=== PATIENT | female | born 1955 | race American Indian/Alaskan Native ===

== ENCOUNTER 2016-11-29 09:56 | Emergency (ER) | payer OTHER, MEDICARE ==
[2016-11-29 10:51] LABS: Eosinophils % (Auto) 1.8 % (0.0-4.3); Hematocrit 34.5 % (30.3-42.9); Hemoglobin 11.7 gm/dl (10.1-14.3); Mean Corpuscular HGB Conc 34 % (30-34); Mean Corpuscular Hemoglobin 30 pg (28-32); Mean Corpuscular Volume 89 fl (79-97); Platelet Count 324 K/mm3 (140-440); Red Blood Count 3.88 M/mm3 (3.65-5.03); Red Cell Distribution Width 14.4 % (13.2-15.2)
[2016-11-29 11:11] LABS: Albumin 3.2 g/dL (3.9-5); Albumin/Globulin Ratio 0.7 %; BUN/Creatinine Ratio 8.04; Bilirubin,Total 0.3 mg/dL (0.1-1.2); Calcium 8.6 mg/dL (8.4-10.2); Potassium 3.6 mmol/L (3.6-5.0); Total Protein 7.6 g/dL (6.3-8.2)
[2016-11-29 11:25] LABS: Bacteria,Urine 1+ /HPF (Negative); Bilirubin,Urine NEG (Negative); Blood,Urine NEG (Negative); Ketones,Urine NEG (Negative); Leukocyte Esterase,Urine TR (Negative); Nitrite,Urine NEG (Negative); Urobilinogen,Urine < 2.0 mg/dL (<2.0)
[2016-11-29] MEDS ORDERED: ZOFRAN ODT PO ONE (14:35)
[2016-11-29] MEDS ORDERED: NORCO 5/325 PO ONE (14:35)
[2016-11-29] MEDS ORDERED: NACL ONE (14:46)
[2016-11-29] MEDS ORDERED: CATAPRES PO ONE (14:48)
--- NOTE | 2016-11-29 15:32 | Emergency Department Report ---
ED Back Pain/Injury HPI - General Chief Complaint: Back Pain/Injury Stated Complaint: BACK PAIN Time Seen by Provider: 11/29/16 14:25 Source: patient Limitations: No Limitations - History of Present Illness Initial Comments: 61 yo female the past medical history of diabetes, hypertension, previous appendectomy/cholecystectomy, and peritoneal dialysis presents to the hospital complains of right lower back pain 4 days. Patient denies any injury. Pain is constant, sharp, worse with palpation and movement. Rated 8/10 in intensity. Pain occasionally radiates to right thigh. Denies numbness, weakness, or urinary incontinence. Only temporary improvement with Aleve. Patient also states she has not had a bowel movement in 3 days despite taking her typical daily laxity of. Patient does make urine denies dysuria. Patient does not have on her blood pressure medications prior to arrival. Inpatient feels like she is full with meals but denies nausea or vomiting. She states that her dialysate fluid is clear. - Related Data Home Medications Medication Instructions Recorded Confirmed Last Taken Aspirin [Aspirin TAB] 325 mg PO ONCE 02/15/15 02/15/15 Unknown Furosemide [Lasix TAB] 90 mg PO BID 02/15/15 02/15/15 Unknown Levothyroxine [Synthroid] 137 mcg PO QAM 02/15/15 02/15/15 Unknown Lisinopril [Zestril TAB] 0 mg PO DAILY 02/15/15 02/15/15 Unknown Metoprolol [Lopressor TAB] 0 mg PO BID 02/15/15 02/15/15 Unknown Previous Rx's Medication Instructions Recorded Last Taken Type HYDROcodone/APAP 5-325 [[place] 1 each PO Q6HR PRN #20 tablet 11/29/16 Unknown Rx 5/325] Allergies Allergy/AdvReac Type Severity Reaction Status Date / Time blueberry Allergy Rash Verified 11/29/16 10:25 chocolate flavor Allergy Rash Verified 11/29/16 10:25 Fish Containing Products Allergy Anaphylaxis Verified 11/29/16 10:25 peanut Allergy Anaphylaxis Verified 11/29/16 10:25 shellfish derived Allergy Anaphylaxis Verified 11/29/16 10:25 strawberry Allergy Rash Verified 11/29/16 10:25 acetaminophen AdvReac Unknown Verified 11/29/16 10:23 codeine AdvReac Unknown Verified 11/29/16 10:23 iodine AdvReac Unknown Verified 11/29/16 10:23 lactase AdvReac Diarrhea Verified 11/29/16 10:25 Penicillins AdvReac Unknown Verified 11/29/16 10:23 Sulfa (Sulfonamide AdvReac Unknown Verified 11/29/16 10:23 Antibiotics) ED Review of Systems ROS: Stated complaint: BACK PAIN Other details as noted in HPI Comment: All other systems reviewed and negative Other: Constitutional: No fevers chills Eyes: No eye pain visual changes ENT: No ear pain or throat pain Neck: Denies pain Respiratory: Denies cough wheezing shortness of breath Cardiovascular: Denies chest pain, palpitations, syncope GI: As per HPI : Denies dysuria Musculoskeletal: As per HPI Skin: Denies rash, lesions, erythema Neurologic: Denies headache, numbness, weakness Psychiatric: Denies suicidal ideation, hallucinations ED Past Medical Hx - Past Medical History Hx Hypertension: Yes Hx Diabetes: Yes Hx Renal Disease: Yes (PERITONEAL DAILY) Additional medical history: THYROID - Surgical History Hx Cholecystectomy: Yes Hx Appendectomy: Yes Additional Surgical History: THYROIDECTOMY. DIALYSIS CATHETER - Social History Smoking Status: Never Smoker Substance Use Type: Prescribed - Medications Home Medications: Home Medications Medication Instructions Recorded Confirmed Last Taken Type Aspirin [Aspirin TAB] 325 mg PO ONCE 02/15/15 02/15/15 Unknown History Furosemide [Lasix TAB] 90 mg PO BID 02/15/15 02/15/15 Unknown History Levothyroxine [Synthroid] 137 mcg PO QAM 02/15/15 02/15/15 Unknown History Lisinopril [Zestril TAB] 0 mg PO DAILY 02/15/15 02/15/15 Unknown History Metoprolol [Lopressor TAB] 0 mg PO BID 02/15/15 02/15/15 Unknown History HYDROcodone/APAP 5-325 [[place] 1 each PO Q6HR PRN #20 tablet 11/29/16 Unknown Rx 5/325] ED Physical Exam - General Limitations: No Limitations - Other Other exam information: General: No limitations, patient is alert in no acute distress Head exam: Atraumatic, normocephalic Eyes exam: Normal appearance ENT: Moist mucous membrane, normal oropharynx Neck exam: Normal inspection, full range of motion Respiratory exam: Clear to auscultation bilateral, no wheezes, rales, crackles Cardiovascular: Normal rate and rhythm, normal heart sounds Abdomen: Soft, nondistended, and nontender, with normal bowel sounds, no rebound, or guarding. Right upper quadrant scar Extremity: Full range of motion normal inspection no deformity Back: Normal Inspection, full range of motion, right lower back tenderness to palpation. No midline tenderness. No deformity. Neurologic: Alert, oriented x3, cranial nerves intact, no motor or sensory deficit Psychiatric: normal affect, normal mood Skin: Warm, dry, intact ED Course Vital Signs 11/29/16 11/29/16 11/29/16 10:32 15:16 15:21 Temperature 98.1 F Pulse Rate 87 Respiratory 18 Rate Blood Pressure 182/108 174/96 Blood Pressure [Right] O2 Sat by Pulse 100 99 96 Oximetry 11/29/16 11/29/16 11/29/16 15:40 15:52 16:45 Temperature Pulse Rate 63 63 Respiratory 18 18 18 Rate Blood Pressure 174/96 Blood Pressure 174/96 175/99 [Right] O2 Sat by Pulse 99 94 Oximetry ED Medical Decision Making - Lab Data Result diagrams: 11/29/16 10:40 11/29/16 10:40 Lab Results 11/29/16 11/29/16 11/29/16 Range/Units 10:29 10:40 10:40 WBC 7.0 (4.5-11.0) K/mm3 RBC 3.88 (3.65-5.03) M/mm3 Hgb 11.7 (10.1-14.3) gm/dl Hct 34.5 (30.3-42.9) % MCV 89 (79-97) fl MCH 30 (28-32) pg MCHC 34 (30-34) % RDW 14.4 (13.2-15.2) % Plt Count 324 (140-440) K/mm3 Lymph % (Auto) 24.9 (13.4-35.0) % [place] % (Auto) 6.8 (0.0-7.3) % Eos % (Auto) 1.8 (0.0-4.3) % Baso % (Auto) 1.0 (0.0-1.8) % Lymph # 1.8 (1.2-5.4) K/mm3 [place] # 0.5 (0.0-0.8) K/mm3 Eos # 0.1 (0.0-0.4) K/mm3 Baso # 0.1 (0.0-0.1) K/mm3 Seg Neutrophils % 65.5 (40.0-70.0) % Seg Neutrophils # 4.6 (1.8-7.7) K/mm3 Sodium 133 L (137-145) mmol/L Potassium 3.6 (3.6-5.0) mmol/L Chloride 92.0 L (98-107) mmol/L Carbon Dioxide 25 (22-30) mmol/L Anion Gap 20 mmol/L BUN 33 H (7-17) mg/dL Creatinine 4.1 H (0.7-1.2) mg/dL Estimated GFR 13 ml/min BUN/Creatinine Ratio 8.04 % Glucose 344 H (65-100) mg/dL POC Glucose 346 H (70-105) Calcium 8.6 (8.4-10.2) mg/dL Total Bilirubin 0.30 (0.1-1.2) mg/dL AST 21 (5-40) units/L ALT 15 (7-56) units/L Alkaline Phosphatase 90 (35-129) units/L Total Protein 7.6 (6.3-8.2) g/dL Albumin 3.2 L (3.9-5) g/dL Albumin/Globulin Ratio 0.7 % Lipase 61 H (13-60) units/L Urine Color (Yellow) Urine Turbidity (Clear) Urine pH (5.0-7.0) Ur Specific [place] (1.003-1.030) Urine Protein (Negative) mg/dL Urine Glucose (UA) (Negative) mg/dL Urine Ketones (Negative) mg/dL Urine Blood (Negative) Urine Nitrite (Negative) Urine Bilirubin (Negative) Urine Urobilinogen (<2.0) mg/dL Ur Leukocyte Esterase (Negative) Urine WBC (Auto) (0.0-6.0) /HPF Urine RBC (Auto) (0.0-6.0) /HPF U Epithel Cells (Auto) (0-13.0) /HPF Urine Bacteria (Auto) (Negative) /HPF 11/29/16 Range/Units 11:05 WBC (4.5-11.0) K/mm3 RBC (3.65-5.03) M/mm3 Hgb (10.1-14.3) gm/dl Hct (30.3-42.9) % MCV (79-97) fl MCH (28-32) pg MCHC (30-34) % RDW (13.2-15.2) % Plt Count (140-440) K/mm3 Lymph % (Auto) (13.4-35.0) % [place] % (Auto) (0.0-7.3) % Eos % (Auto) (0.0-4.3) % Baso % (Auto) (0.0-1.8) % Lymph # (1.2-5.4) K/mm3 [place] # (0.0-0.8) K/mm3 Eos # (0.0-0.4) K/mm3 Baso # (0.0-0.1) K/mm3 Seg Neutrophils % (40.0-70.0) % Seg Neutrophils # (1.8-7.7) K/mm3 Sodium (137-145) mmol/L Potassium (3.6-5.0) mmol/L Chloride (98-107) mmol/L Carbon Dioxide (22-30) mmol/L Anion Gap mmol/L BUN (7-17) mg/dL Creatinine (0.7-1.2) mg/dL Estimated GFR ml/min BUN/Creatinine Ratio % Glucose (65-100) mg/dL POC Glucose (70-105) Calcium (8.4-10.2) mg/dL Total Bilirubin (0.1-1.2) mg/dL AST (5-40) units/L ALT (7-56) units/L Alkaline Phosphatase (35-129) units/L Total Protein (6.3-8.2) g/dL Albumin (3.9-5) g/dL Albumin/Globulin Ratio % Lipase (13-60) units/L Urine Color Colorless (Yellow) Urine Turbidity Clear (Clear) Urine pH 7.0 (5.0-7.0) Ur Specific [place] 1.007 (1.003-1.030) Urine Protein 100 mg/dl (Negative) mg/dL Urine Glucose (UA) >=500 (Negative) mg/dL Urine Ketones Neg (Negative) mg/dL Urine Blood Neg (Negative) Urine Nitrite Neg (Negative) Urine Bilirubin Neg (Negative) Urine Urobilinogen < 2.0 (<2.0) mg/dL Ur Leukocyte Esterase Tr (Negative) Urine WBC (Auto) 3.0 (0.0-6.0) /HPF Urine RBC (Auto) 5.0 (0.0-6.0) /HPF U Epithel Cells (Auto) 1.0 (0-13.0) /HPF Urine Bacteria (Auto) 1+ (Negative) /HPF - Radiology Data Radiology results: report reviewed CT abdomen and pelvis noncontrast: Appendix is not visualized. No obstruction or inflammation. No significant stool retention. No hydronephrosis or uterolithias, Bilateral adrenal nodules are present. Right adrenal nodule is indeterminate in etiology and follow-up imaging is indicated. - Medical Decision Making Positive pain relief after [place]. Will be continued as outpatient. Patient warned of worsening constipation while taking narcotics. No significant stool burden identified on CT. No acute intra-abdominal pathology or infection noted. Patient was treated for muscular strain of the right lower back. Glucose improved to the 200's after Insulin - Differential Diagnosis constipation, renal colic, muscle strain, herniated disc Critical Care Time: No Critical care attestation.: If time is entered above; I have spent that time in minutes in the direct care of this critically ill patient, excluding procedure time. ED Disposition Clinical Impression: Low back strain, ESRD on peritoneal dialysis, HTN (hypertension), Diabetes, Adrenal nodule Disposition: DC-01 TO HOME OR SELFCARE Is pt being admited?: No Does the pt Need Aspirin: No Condition: Stable Instructions: Low Back Strain (ED) Additional Instructions: Take the [place] as needed for pain. Note that this medication may cause constipation so take sparingly. Follow up with your doctor and take a copy of the CAT scan report to your physicians for further outpatient evaluation and workup. Prescriptions: HYDROcodone/APAP 5-325 [[place] 5/325] 1 each PO Q6HR PRN #20 tablet PRN Reason: Pain Referrals: PATRICIA FREEMAN JR, MD [Primary Care Provider] - 3-5 Days Time of Disposition: 16:58
--- NOTE | 2016-11-29 16:32 | Cat Scan Report ---
FINAL REPORT PROCEDURE: CT ABDOMEN PELVIS WO CON TECHNIQUE: Computerized axial tomography of the abdomen and pelvis was performed without intravenous contrast. This study is performed without intravascular contrast material and its sensitivity for abdominal and pelvic pathology, including neoplasms, inflammation, abscess, free fluid, thrombosis, arterial dissection and infarction, is reduced compared with a contrast enhanced study. HISTORY: r flank pain, pd dialysis, constipation COMPARISON: No prior studies are available for comparison. FINDINGS: Visualized lower thorax: No significant abnormality. Liver: Normal size and attenuation. Spleen: Normal size and attenuation. Gallbladder and biliary system: Gallbladder is not visualized. Pancreas: Normal. Adrenals: Bilateral low-density adrenal nodules. Left adrenal nodule measures less than 10 Hounsfield units in density and is likely benign. The right adrenal nodule measures up to 2.6 centimeters; average density measures greater than 10 Hounsfield units and is indeterminate in etiology. Left adrenal nodule measures up to 1.8 centimeters. Kidneys: No hydronephrosis or urolithiasis. GI tract: Appendix is not visualized. No bowel obstruction or acute inflammation is seen however. Mild volume of stool is seen in the colon. Lymph nodes and mesentery: Normal. Vasculature: Normal. Bladder: Normal. Reproductive organs: Grossly unremarkable. Peritoneum: Low-density free fluid is seen in the abdomen and pelvis, likely related to peritoneal dialysis. Musculoskeletal structures: Minimal degenerative changes of the lower lumbar spine. Other: None. IMPRESSION: Note that the appendix is not visualized/evaluated. Otherwise no bowel obstruction or inflammation is seen. No significant stool retention is noted. No hydronephrosis or urolithiasis. Bilateral adrenal nodules are present. Right adrenal nodule is indeterminate in etiology. Follow-up imaging could be obtained if indicated
[2016-11-29 16:46] VITALS: BP 175/99
== END 2016-11-29 17:04 | disposition home or self-care (01) ==
LOC: ED 09:56
DX: S39.012A Strain of muscle, fascia and tendon of lower back, initial encounter (principal); E11.22 Type 2 diabetes mellitus with diabetic chronic kidney disease; I12.0 Hypertensive chronic kidney disease with stage 5 chronic kidney disease or end stage renal disease; N18.6 End stage renal disease; Z79.82 Long term (current) use of aspirin; Z88.8 Allergy status to other drugs, medicaments and biological substances; Z91.013 Allergy to seafood; Z91.010 Allergy to peanuts; Z88.0 Allergy status to penicillin; Z91.018 Allergy to other foods; Z88.2 Allergy status to sulfonamides; Z88.5 Allergy status to narcotic agent; Z91.040 Latex allergy status; Z99.2 Dependence on renal dialysis
CPT/HCPCS: 36415; 74176; 80053; 81001; 82962; 83690; 85025; 96372; J1815; Q0162

== ENCOUNTER 2018-02-01 13:16 | Inpatient (IN) | payer OTHER, MEDICARE ==
[2018-02-01 14:07] LABS: Basophils # (Auto) 0.1 K/mm3 (0.0-0.1); Basophils % (Auto) 0.8 % (0.0-1.8); Eosinophils # (Auto) 0.2 K/mm3 (0.0-0.4); Eosinophils % (Auto) 1.8 % (0.0-4.3); Hematocrit 28.9 % (30.3-42.9); Hemoglobin 9.7 gm/dl (10.1-14.3); Lymphocytes # (Auto) 1.7 K/mm3 (1.2-5.4); Lymphocytes % (Auto) 14.1 % (13.4-35.0); Mean Corpuscular HGB Conc 34 % (30-34); Mean Corpuscular Hemoglobin 30 pg (28-32); Mean Corpuscular Volume 90 fl (79-97); Monocytes # (Auto) 0.8 K/mm3 (0.0-0.8); Monocytes % (Auto) 6.8 % (0.0-7.3); Platelet Count 430 K/mm3 (140-440); Red Blood Count 3.21 M/mm3 (3.65-5.03); Red Cell Distribution Width 13.6 % (13.2-15.2)
[2018-02-01 14:32] LABS: Calcium 8.1 mg/dL (8.4-10.2)
--- NOTE | 2018-02-01 16:12 | XRay Report ---
FINAL REPORT EXAM: XR CHEST ROUTINE 2V HISTORY: Shortness of breath TECHNIQUE: 2 view examination of the chest PRIORS: None FINDINGS: Patchy nonspecific opacity is noted in the right midlung and both lung bases. There is associated consolidation on the right. Right-sided findings primarily in right upper lobe and right middle lobe. No evidence of pleural effusion. No pneumothorax. No acute skeletal pathology. Atherosclerotic calcification in aorta and degenerative spondylosis thoracic spine. IMPRESSION: Bibasilar opacities may reflect atelectasis, edema, and/or pneumonia with consolidation on the right
[2018-02-01] MEDS ORDERED: APRESOLINE IV ONE (16:26)
[2018-02-01] MEDS ORDERED: ASPIRIN PO ONE (16:26)
[2018-02-01] MEDS ORDERED: NITROSTAT SL PRN (16:26)
[2018-02-01] MEDS ORDERED: ZITHROMAX PO ONE (16:26)
--- NOTE | 2018-02-01 16:28 | Emergency Department Report ---
ED General Adult HPI - General Chief complaint: Dyspnea/Respdistress Stated complaint: shortness of breath Time Seen by Provider: 02/01/18 16:09 Source: patient, RN notes reviewed, old records reviewed Mode of arrival: Ambulatory Limitations: No Limitations - History of Present Illness Initial comments: This is a 62-year-old female who is not known to this provider previously, who is on peritoneal dialysis nightly, and her private land manager is at [place]. She also endorses a past medical history of hypertension. She presents to the ER with a complaint of cough, shortness of breath, chest pain and generalized weakness. The symptoms have been going on for the past few days. They're constant. Her chest discomfort occasionally radiates to the back. It otherwise does not have exacerbating or relieving factors. She denies DVT, pulmonary embolus risk factors. She thinks she is up on her water weight. -: Gradual Location: chest Radiation: back Severity scale (0 -10): 2 Quality: aching Consistency: intermittent Improves with: other Worsens with: other Associated Symptoms: chest pain, cough, fever/chills, loss of appetite, malaise , shortness of breath, weakness. denies: confusion, diaphoresis, headaches, nausea/vomiting, rash, seizure, syncope - Related Data Home Medications Medication Instructions Recorded Confirmed Last Taken Aspirin [Aspirin TAB] 325 mg PO ONCE 02/15/15 02/15/15 Unknown Furosemide [Lasix TAB] 90 mg PO BID 02/15/15 02/15/15 Unknown Levothyroxine [Synthroid] 137 mcg PO QAM 02/15/15 02/15/15 Unknown Lisinopril [Zestril TAB] 0 mg PO DAILY 02/15/15 02/15/15 Unknown Metoprolol [Lopressor TAB] 0 mg PO BID 02/15/15 02/15/15 Unknown Previous Rx's Medication Instructions Recorded Last Taken Type HYDROcodone/APAP 5-325 [[place] 1 each PO Q6HR PRN #20 tablet 11/29/16 Unknown Rx 5/325] Allergies Allergy/AdvReac Type Severity Reaction Status Date / Time blueberry Allergy Rash Verified 02/01/18 13:25 chocolate flavor Allergy Rash Verified 02/01/18 13:25 Fish Containing Products Allergy Anaphylaxis Verified 02/01/18 13:25 peanut Allergy Anaphylaxis Verified 02/01/18 13:25 shellfish derived Allergy Anaphylaxis Verified 02/01/18 13:25 strawberry Allergy Rash Verified 02/01/18 13:25 acetaminophen AdvReac Unknown Verified 02/01/18 13:25 codeine AdvReac Unknown Verified 02/01/18 13:25 iodine AdvReac Unknown Verified 02/01/18 13:25 lactase AdvReac Diarrhea Verified 02/01/18 13:25 Penicillins AdvReac Unknown Verified 02/01/18 13:25 Sulfa (Sulfonamide AdvReac Unknown Verified 02/01/18 13:25 Antibiotics) ED Review of Systems ROS: Stated complaint: shortness of breath Other details as noted in HPI Comment: All other systems reviewed and negative ED Past Medical Hx - Past Medical History Previous Medical History?: Yes Hx Hypertension: Yes Hx Diabetes: Yes Hx Renal Disease: Yes (PERITONEAL DAILY) Additional medical history: hypothyroidsim - Surgical History Past Surgical History?: Yes Hx Cholecystectomy: Yes Hx Appendectomy: Yes Additional Surgical History: THYROIDECTOMY. DIALYSIS CATHETER - Social History Smoking Status: Never Smoker Substance Use Type: None - Medications Home Medications: Home Medications Medication Instructions Recorded Confirmed Last Taken Type Aspirin [Aspirin TAB] 325 mg PO ONCE 02/15/15 02/15/15 Unknown History Furosemide [Lasix TAB] 90 mg PO BID 02/15/15 02/15/15 Unknown History Levothyroxine [Synthroid] 137 mcg PO QAM 02/15/15 02/15/15 Unknown History Lisinopril [Zestril TAB] 0 mg PO DAILY 02/15/15 02/15/15 Unknown History Metoprolol [Lopressor TAB] 0 mg PO BID 02/15/15 02/15/15 Unknown History HYDROcodone/APAP 5-325 [[place] 1 each PO Q6HR PRN #20 tablet 11/29/16 Unknown Rx 5/325] ED Physical Exam - General Limitations: No Limitations General appearance: alert, in no apparent distress - Head Head exam: Present: atraumatic, normocephalic - Eye Eye exam: Present: normal appearance, EOMI. Absent: nystagmus - ENT ENT exam: Present: normal exam, normal orophraynx, mucous membranes moist, normal external ear exam - Neck Neck exam: Present: normal inspection, full ROM - Respiratory Respiratory exam: Present: normal lung sounds bilaterally. Absent: respiratory distress, rhonchi, stridor - Cardiovascular Cardiovascular Exam: Present: normal rhythm, tachycardia, normal heart sounds. Absent: systolic murmur, diastolic murmur, rubs, gallop - GI/Abdominal GI/Abdominal exam: Present: soft, other (there is a peritoneal dialysis access catheter noted, with no redness, pus or streaks). Absent: distended, tenderness , guarding, rebound, rigid, pulsatile mass - Extremities Exam Extremities exam: Present: normal inspection, full ROM, normal capillary refill , other (2+ pulses noted in the bilateral upper, lower extremities. Compartments soft. No long bony tenderness. The pelvis is stable.). Absent: tenderness, pedal edema, joint swelling, calf tenderness - Back Exam Back exam: Present: normal inspection, full ROM. Absent: tenderness, CVA tenderness (R), paraspinal tenderness, vertebral tenderness - Neurological Exam Neurological exam: Present: alert, oriented X3, CN II-XII intact, normal gait, other (Extraocular movements intact. Tongue midline. No facial droop. Facial sensation intact to light touch in the V1, V2, V3 distribution bilaterally. 5 and 5 strength in 4 extremities.. Sensation is intact to light touch in 4 extremities.). Absent: motor sensory deficit - Psychiatric Psychiatric exam: Present: anxious - Skin Skin exam: Present: warm, dry, intact, normal color. Absent: rash ED Course Vital Signs 02/01/18 02/01/18 02/01/18 13:17 14:53 15:00 Temperature 98.5 F Pulse Rate 118 H 106 H Respiratory 24 12 Rate Blood Pressure 231/135 198/101 O2 Sat by Pulse 93 98 97 Oximetry 02/01/18 02/01/18 02/01/18 15:30 16:00 16:30 Temperature Pulse Rate 103 H 108 H 111 H Respiratory 21 20 16 Rate Blood Pressure 198/119 208/121 207/124 O2 Sat by Pulse 98 99 99 Oximetry 02/01/18 02/01/18 17:09 17:10 Temperature Pulse Rate 100 H 100 H Respiratory Rate Blood Pressure 194/101 194/101 O2 Sat by Pulse Oximetry ED Medical Decision Making - Lab Data Result diagrams: 02/01/18 13:34 02/01/18 13:34 Vital Signs 02/01/18 02/01/18 02/01/18 13:17 14:53 15:00 Temperature 98.5 F Pulse Rate 118 H 106 H Respiratory 24 12 Rate Blood Pressure 231/135 198/101 O2 Sat by Pulse 93 98 97 Oximetry 02/01/18 02/01/18 02/01/18 15:30 16:00 16:30 Temperature Pulse Rate 103 H 108 H 111 H Respiratory 21 20 16 Rate Blood Pressure 198/119 208/121 207/124 O2 Sat by Pulse 98 99 99 Oximetry 02/01/18 02/01/18 17:09 17:10 Temperature Pulse Rate 100 H 100 H Respiratory Rate Blood Pressure 194/101 194/101 O2 Sat by Pulse Oximetry Lab Results 02/01/18 02/01/18 02/01/18 Range/Units 13:34 13:34 13:34 WBC 11.9 H (4.5-11.0) K/mm3 RBC 3.21 L (3.65-5.03) M/mm3 Hgb 9.7 L (10.1-14.3) gm/dl Hct 28.9 L (30.3-42.9) % MCV 90 (79-97) fl MCH 30 (28-32) pg MCHC 34 (30-34) % RDW 13.6 (13.2-15.2) % Plt Count 430 (140-440) K/mm3 Lymph % (Auto) 14.1 (13.4-35.0) % [place] % (Auto) 6.8 (0.0-7.3) % Eos % (Auto) 1.8 (0.0-4.3) % Baso % (Auto) 0.8 (0.0-1.8) % Lymph # 1.7 (1.2-5.4) K/mm3 [place] # 0.8 (0.0-0.8) K/mm3 Eos # 0.2 (0.0-0.4) K/mm3 Baso # 0.1 (0.0-0.1) K/mm3 Seg Neutrophils % 76.5 H (40.0-70.0) % Seg Neutrophils # 9.1 H (1.8-7.7) K/mm3 Sodium 137 (137-145) mmol/L Potassium 4.1 (3.6-5.0) mmol/L Chloride 94.4 L (98-107) mmol/L Carbon Dioxide 19 L (22-30) mmol/L Anion Gap 28 mmol/L BUN 71 H (7-17) mg/dL Creatinine 14.1 H (0.7-1.2) mg/dL Estimated GFR 3 ml/min BUN/Creatinine Ratio 5 % Glucose 213 H (65-100) mg/dL Calcium 8.1 L (8.4-10.2) mg/dL Troponin T 0.045 H (0.00-0.029) ng/mL - EKG Data When compared to previous EKG there are: previous EKG unavailable 02/01/18 17:31 Sinus tachycardia, 117 bpm, normal axis, QTC prolonged, motion artifact, not a STEMI - Radiology Data Radiology results: report reviewed, image reviewed X-ray of the chest suggest pneumonia as well as congestive heart failure, possible fluid overload - Medical Decision Making Differential diagnosis, including but not limited to: Congestive heart failure, pneumonia, end-stage renal disease, hypertensive urgency Acute coronary syndrome Assessment and plan: 62-year-old female with hypertension, shortness of breath, cough, orthopnea, x-ray of the chest suggest pneumonia and possible fluid overload. When she lays supine, she becomes quite symptomatic. She has no DVT or pulmonary embolus risk factors, she is low risk by well's criteria, and she does have an elevated troponin which is likely secondary to her underlying renal insufficiency. The patient is from the community. She'll be treated empirically with ceftriaxone, azithromycin, aspirin. She is also given hydralazine. She describes a nonspecific rash to penicillin, but has had no interactions with third or fourth generation cephalosporins as far she is aware. Case presented to Dr. Hernandez, consulting nephrology, who will follow in consultation. Case presented to the Hospital physician, Dr. Pichardo, he accepted the patient to his service. Critical care attestation.: If time is entered above; I have spent that time in minutes in the direct care of this critically ill patient, excluding procedure time. ED Disposition Clinical Impression: ESRD (end stage renal disease), Pneumonia, Fluid overload Disposition: OP ADMIT IP TO THIS HOSP Is pt being admited?: Yes Condition: Good Instructions: Bacterial Pneumonia (ED) Referrals: PRIMARY CARE, [Primary Care Provider] - 3-5 Days
[2018-02-01] MEDS ORDERED: LASIX IV ONE (16:59)
[2018-02-01] MEDS ORDERED: ROCEPHIN/NS 1 GM/50 ML 1 GM/50 ML BAG IV ONE (17:00)
[2018-02-01] MEDS ORDERED: BENADRYL ONE ×2 (17:27→21:30)
[2018-02-01] MEDS ORDERED: BENADRYL IV ONE (17:31)
[2018-02-01 17:58] LABS: Chol/HDL Ratio 8.58 %
[2018-02-01] MEDS ORDERED: LASIX ONE ×2 (19:01→19:03)
[2018-02-01] MEDS: DIANEAL LOW CALCIUM W/2.5% DEXTROSE IP SCH (20:30)
[2018-02-01] MEDS ORDERED: BENADRYL IV PRN (21:00)
--- NOTE | 2018-02-01 22:50 | History and Physical Report ---
History of Present Illness Date of examination: 02/01/18 Date of admission: 02/01/18 17:32 Chief complaint: Chief complaint chest pain and shortness of breath for 36 hours History of present illness: History of Present Illness: 62-year-old female with end-stage renal disease on peritoneal dialysis, hypertension and diabetes and hypothyroidism comes in for chest discomfort which radiates to the back. Also shortness of breath. Her options advisor is that every. Chest pain for about 36 hours. Intermittent in nature. No diaphoresis. Some shortness of breath present. No palpitations. Orthopnea present. Shortness of breath on minimal exertion present. No fever or chills. No exacerbating or relieving factors. Chest pain is about 5 on a scale of 1- 10. Past Medical History Previous Medical History?: Yes Hx Hypertension: Yes Hx Diabetes: Yes Hx Renal Disease: Yes (PERITONEAL DAILY) Additional medical history: hypothyroidsim Surgical History Past Surgical History?: Yes Hx Cholecystectomy: Yes Hx Appendectomy: Yes Additional Surgical History: THYROIDECTOMY. DIALYSIS CATHETER Social History Smoking Status: Never Smoker Substance Use Type: None Medications Home Medications: Home Medications Medication Instructions Recorded Confirmed Last Taken Type Aspirin [Aspirin TAB] 325 mg PO ONCE 02/15/15 02/15/15 Unknown History Furosemide [Lasix TAB] 90 mg PO BID 02/15/15 02/15/15 Unknown History Levothyroxine [Synthroid] 137 mcg PO QAM 02/15/15 02/15/15 Unknown History Lisinopril [Zestril TAB] 0 mg PO DAILY 02/15/15 02/15/15 Unknown History Metoprolol [Lopressor TAB] 0 mg PO BID 02/15/15 02/15/15 Unknown History HYDROcodone/APAP 5-325 [[place] 1 each PO Q6HR PRN #20 tablet 11/29/16 Unknown Rx 5/325] Review of Systems ROS: Stated complaint: shortness of breath Other details as noted in HPI Comment: All other systems reviewed and negative Medications and Allergies Allergies Allergy/AdvReac Type Severity Reaction Status Date / Time blueberry Allergy Rash Verified 02/01/18 13:25 chocolate flavor Allergy Rash Verified 02/01/18 13:25 Fish Containing Products Allergy Anaphylaxis Verified 02/01/18 13:25 peanut Allergy Anaphylaxis Verified 02/01/18 13:25 shellfish derived Allergy Anaphylaxis Verified 02/01/18 13:25 strawberry Allergy Rash Verified 02/01/18 13:25 acetaminophen AdvReac Unknown Verified 02/01/18 13:25 codeine AdvReac Unknown Verified 02/01/18 13:25 iodine AdvReac Unknown Verified 02/01/18 13:25 lactase AdvReac Diarrhea Verified 02/01/18 13:25 Penicillins AdvReac Unknown Verified 02/01/18 13:25 Sulfa (Sulfonamide AdvReac Unknown Verified 02/01/18 13:25 Antibiotics) Home Medications Medication Instructions Recorded Confirmed Last Taken Type Aspirin [Aspirin TAB] 325 mg PO ONCE 02/15/15 02/15/15 Unknown History Furosemide [Lasix TAB] 90 mg PO BID 02/15/15 02/15/15 Unknown History Levothyroxine [Synthroid] 137 mcg PO QAM 02/15/15 02/15/15 Unknown History Lisinopril [Zestril TAB] 0 mg PO DAILY 02/15/15 02/15/15 Unknown History Metoprolol [Lopressor TAB] 0 mg PO BID 02/15/15 02/15/15 Unknown History HYDROcodone/APAP 5-325 [[place] 1 each PO Q6HR PRN #20 tablet 11/29/16 Unknown Rx 5/325] Active Meds: Active Medications Diphenhydramine HCl (Benadryl) 25 mg IV Q6H PRN PRN Reason: Itching Last Admin: 02/01/18 21:30 Dose: 25 mg Nitroglycerin (Nitrostat) 0.4 mg SL .Q5MIN PRN PRN Reason: Chest Pain Last Admin: 02/01/18 17:10 Dose: 0.4 mg Peritoneal Dialysis Solution (Dianeal Low Calcium W/2.5% Dextrose) 2,000 ml IP Q4HR [facility] Last Admin: 02/01/18 20:30 Dose: 2,000 ml Exam - Physical Exam Narrative exam: Lying in bed comfortably - Constitutional Vitals: Temp Pulse Resp BP Pulse Ox 98.5 F 110 H 22 202/103 98 02/01/18 13:17 02/01/18 20:30 02/01/18 21:35 02/01/18 20:30 02/01/18 21:35 General appearance: Present: no acute distress, well-nourished - EENT Eyes: Present: PERRL ENT: hearing intact, clear oral mucosa - Neck Neck: Present: supple, normal ROM - Respiratory Respiratory effort: normal Respiratory: bilateral: CTA - Cardiovascular Heart rate: 117 Rhythm: regular Heart Sounds: Present: S1 & S2. Absent: rub, click - Extremities Extremities: no ischemia, pulses intact, pulses symmetrical, No edema Peripheral Pulses: within normal limits - Abdominal General gastrointestinal: Present: soft, non-tender, non-distended, normal bowel sounds Female genitourinary: Present: normal - Rectal Rectal Exam: deferred - Integumentary Integumentary: Present: clear, warm, dry - Musculoskeletal Musculoskeletal: gait normal, strength equal bilaterally - Psychiatric Psychiatric: appropriate mood/affect, intact judgment & insight - Neurologic Neurologic: CNII-XII intact, moves all extremities - Allied Health Allied health notes reviewed: nursing, case management Results - Labs CBC & Chem 7: 02/01/18 13:34 02/01/18 13:34 Labs: Laboratory Last Values WBC 11.9 K/mm3 (4.5-11.0) H 02/01/18 13:34 RBC 3.21 M/mm3 (3.65-5.03) L 02/01/18 13:34 Hgb 9.7 gm/dl (10.1-14.3) L 02/01/18 13:34 Hct 28.9 % (30.3-42.9) L 02/01/18 13:34 MCV 90 fl (79-97) 02/01/18 13:34 MCH 30 pg (28-32) 02/01/18 13:34 MCHC 34 % (30-34) 02/01/18 13:34 RDW 13.6 % (13.2-15.2) 02/01/18 13:34 Plt Count 430 K/mm3 (140-440) 02/01/18 13:34 Lymph % (Auto) 14.1 % (13.4-35.0) 02/01/18 13:34 [place] % (Auto) 6.8 % (0.0-7.3) 02/01/18 13:34 Eos % (Auto) 1.8 % (0.0-4.3) 02/01/18 13:34 Baso % (Auto) 0.8 % (0.0-1.8) 02/01/18 13:34 Lymph # 1.7 K/mm3 (1.2-5.4) 02/01/18 13:34 [place]le # 0.8 K/mm3 (0.0-0.8) 02/01/18 13:34 Eos # 0.2 K/mm3 (0.0-0.4) 02/01/18 13:34 Baso # 0.1 K/mm3 (0.0-0.1) 02/01/18 13:34 Seg Neutrophils % 76.5 % (40.0-70.0) H 02/01/18 13:34 Seg Neutrophils # 9.1 K/mm3 (1.8-7.7) H 02/01/18 13:34 Sodium 137 mmol/L (137-145) 02/01/18 13:34 Potassium 4.1 mmol/L (3.6-5.0) 02/01/18 13:34 Chloride 94.4 mmol/L (98-107) L 02/01/18 13:34 Carbon Dioxide 19 mmol/L (22-30) L 02/01/18 13:34 Anion Gap 28 mmol/L 02/01/18 13:34 BUN 71 mg/dL (7-17) H 02/01/18 13:34 Creatinine 14.1 mg/dL (0.7-1.2) H 02/01/18 13:34 Estimated GFR 3 ml/min 02/01/18 13:34 BUN/Creatinine Ratio 5 % 02/01/18 13:34 Glucose 213 mg/dL (65-100) H 02/01/18 13:34 Lactic Acid 1.20 mmol/L (0.7-2.0) 02/01/18 17:04 Calcium 8.1 mg/dL (8.4-10.2) L 02/01/18 13:34 Troponin T 0.045 ng/mL (0.00-0.029) H 02/01/18 13:34 NT-Pro-B Natriuret Pep 75907 pg/mL (0-900) H 02/01/18 17:04 Triglycerides 353 mg/dL (2-149) H 02/01/18 13:34 Cholesterol 266 mg/dL (50-199) H 02/01/18 13:34 LDL Cholesterol Direct 164 mg/dL (50-130) H 02/01/18 13:34 HDL Cholesterol 31 mg/dL (40-59) L 02/01/18 13:34 Cholesterol/HDL Ratio 8.58 % 02/01/18 13:34 - Imaging and Cardiology EKG: report reviewed (sinus tachycardia heart rate of 117) Imaging and Cardiology: Chest x-ray Bibasilar opacities may reflect atelectasis edema and pneumonia with consolidation of the right Assessment and Plan Advance Directives: Yes (full code) VTE prophylaxis?: Chemical Plan of care discussed with patient/family: Yes - Patient Problems (1) Pneumonia Current Visit: Yes Status: Acute Plan to address problem: IV Levaquin for now Every 48 hours (2) Acute exacerbation of CHF (congestive heart failure) Current Visit: Yes Status: Acute Qualifiers: Heart failure type: combined systolic and diastolic Qualified Code(s): I50.43 - Acute on chronic combined systolic (congestive) and diastolic ( congestive) heart failure Plan to address problem: Secondary to volume overload Echocardiogram ordered for ejection fraction Cardiology and nephrology consult requested (3) Chest pain Current Visit: Yes Status: Acute Plan to address problem: Serial troponins and Lexiscan ordered (4) ESRD (end stage renal disease) Current Visit: Yes Status: Chronic Plan to address problem: Continue peritoneal dialysis May need hemodialysis (5) Hypertension Current Visit: Yes Status: Chronic Qualifiers: Hypertension type: essential hypertension Qualified Code(s): I10 - Essential (primary) hypertension Plan to address problem: Continue antihypertensives (6) Hypothyroidism (acquired) Current Visit: Yes Status: Chronic Plan to address problem: Continue Synthroid Check TSH (7) DVT prophylaxis Current Visit: Yes Status: Acute Plan to address problem: Heparin 5000 every 12 hours GI prophylaxis initiated
[2018-02-01] MEDS ORDERED: SODIUM CHLORIDE FLUSH SYRINGE 10 ML IV PRN (23:08)
[2018-02-01] MEDS ORDERED: DILAUDID IV PRN (23:08)
[2018-02-01] MEDS ORDERED: PERCOCET 5/325 PO PRN (23:08)
[2018-02-01] MEDS ORDERED: ZOFRAN IV PRN (23:08)
[2018-02-01] MEDS ORDERED: ASPIRIN PO SCH (23:45)
[2018-02-02] MEDS: DIANEAL LOW CALCIUM W/2.5% DEXTROSE IP SCH ×7 (00:40→23:00)
--- NOTE | 2018-02-02 03:37 | Consultation ---
History of Present Illness - Reason for Consult Consult date: 02/01/18 end stage renal disease - History of Present Illness Mrs Rosario is a 62-year-old female with ESRD on CAPD followed by Dr. Puente who presented to the ED with a one day history of elevated blood pressures at home (SBP in 200s) and chest pain. Patient contacted her vest baster who advised her to come to the ED. She reports cough, shortness of breath, chest pain and generalized weakness. She reports compliance with PD - does three exchanges daily. She denies abdominal pain, N/V, change in PD fluid. In the ED, she is noted to have diarrhea. Past History Past Medical History: ESRD, hypertension, hypothyroidism Past Surgical History: Other (PD catheter insertion) Social history: no significant social history Medications and Allergies Allergies Allergy/AdvReac Type Severity Reaction Status Date / Time blueberry Allergy Rash Verified 02/01/18 13:25 chocolate flavor Allergy Rash Verified 02/01/18 13:25 Fish Containing Products Allergy Anaphylaxis Verified 02/01/18 13:25 peanut Allergy Anaphylaxis Verified 02/01/18 13:25 shellfish derived Allergy Anaphylaxis Verified 02/01/18 13:25 strawberry Allergy Rash Verified 02/01/18 13:25 acetaminophen AdvReac Unknown Verified 02/01/18 13:25 codeine AdvReac Unknown Verified 02/01/18 13:25 iodine AdvReac Unknown Verified 02/01/18 13:25 lactase AdvReac Diarrhea Verified 02/01/18 13:25 Penicillins AdvReac Unknown Verified 02/01/18 13:25 Sulfa (Sulfonamide AdvReac Unknown Verified 02/01/18 13:25 Antibiotics) Home Medications Medication Instructions Recorded Confirmed Last Taken Type Aspirin [Aspirin TAB] 325 mg PO ONCE 02/15/15 02/15/15 Unknown History Furosemide [Lasix TAB] 90 mg PO BID 02/15/15 02/15/15 Unknown History Levothyroxine [Synthroid] 137 mcg PO QAM 02/15/15 02/15/15 Unknown History Lisinopril [Zestril TAB] 0 mg PO DAILY 02/15/15 02/15/15 Unknown History Metoprolol [Lopressor TAB] 0 mg PO BID 02/15/15 02/15/15 Unknown History HYDROcodone/APAP 5-325 [[place] 1 each PO Q6HR PRN #20 tablet 11/29/16 Unknown Rx 5/325] Active Meds: Active Medications Acetaminophen (Tylenol) 650 mg PO Q4H PRN PRN Reason: Pain MILD(1-3)/Fever >100.5/URRUTIA Aspirin (Aspirin) 325 mg PO ONCE [facility] Atorvastatin Calcium (Lipitor) 20 mg PO QHS [facility] Diphenhydramine HCl (Benadryl) 25 mg IV Q6H PRN PRN Reason: Itching Last Admin: 02/01/18 21:30 Dose: 25 mg Furosemide (Lasix) 90 mg PO BID [facility] Hydromorphone HCl (Dilaudid) 0.5 mg IV Q3H PRN PRN Reason: Pain , Severe (7-10) Levothyroxine Sodium (Synthroid) 112 mcg PO QAM@0600 [facility] Levothyroxine Sodium (Synthroid) 25 mcg PO DAILY@0600 [facility] Lisinopril (Zestril) 2.5 mg PO DAILY [facility] Metoprolol Tartrate (Lopressor) 25 mg PO BID [facility] Nitroglycerin (Nitrostat) 0.4 mg SL .Q5MIN PRN PRN Reason: Chest Pain Last Admin: 02/01/18 17:10 Dose: 0.4 mg Ondansetron HCl (Zofran) 4 mg IV Q8H PRN PRN Reason: Nausea And Vomiting Oxycodone/Acetaminophen (Percocet 5/325) 1 tab PO Q6H PRN PRN Reason: Pain, Moderate (4-6) Peritoneal Dialysis Solution (Dianeal Low Calcium W/2.5% Dextrose) 2,000 ml IP Q4HR [facility] Last Admin: 02/02/18 00:40 Dose: 2,000 ml Sodium Chloride (Sodium Chloride Flush Syringe 10 Ml) 10 ml IV BID [facility] Sodium Chloride (Sodium Chloride Flush Syringe 10 Ml) 10 ml IV PRN PRN PRN Reason: LINE FLUSH Review of Systems All systems: negative Exam - Vital Signs Vital signs: Vital Signs Temp Pulse Resp BP Pulse Ox 98.5 F 118 H 24 231/135 93 02/01/18 13:17 02/01/18 13:17 02/01/18 13:17 02/01/18 13:17 02/01/18 13:17 - General Appearance General appearance: well-developed, well-nourished EENT: ATNC Respiratory: Rales Heart: regular, S1S2 Gastrointestinal: Present: normoactive bowel sounds Integumentary: no rash, warm and dry Neurologic: alert and oriented x3 Musculoskeletal: Present: other (+edema) Psychiatric: cooperative Results - Lab Results 02/01/18 13:34 02/01/18 13:34 Most recent lab results Calcium 8.1 mg/dL (8.4-10.2) L 02/01/18 13:34 Assessment and Plan Impression: * ESRD on CAPD * Accelerated hypertension * Pulmonary edema * Uremia? * Anemia secondary to ESRD Plan: * Patient reports that she is on CAPD at home but only 3 exchanges daily - likely inadequate * Will resume CAPD - increase frequency of exchanges given fluid overload and possible uremia * Resume home antiHTN medications * Dose medications for renal function * SAMANTHA TIW prn * Renal diet
[2018-02-02 04:48] LABS: Calcium 7.8 mg/dL (8.4-10.2)
[2018-02-02] MEDS: LOPRESSOR PO SCH ×3 (05:15→22:55)
[2018-02-02] MEDS ORDERED: LEXISCAN IV ONE ×2 (08:17→08:19)
--- NOTE | 2018-02-02 09:16 | Progress Note ---
Assessment and Plan Impression: * ESRD on CAPD * Accelerated hypertension * Pulmonary edema * Uremia * Anemia secondary to ESRD Plan: * Continue CAPD - 4 exchanges daily * Patient is uremic based on history - advised that she resume 4 exchanges daily upon discharge * Continue antiHTN medications * Dose medications for renal function * Avoid potential nephrotoxins Subjective Date of service: 02/02/18 Interval history: Reports feeling better. Breathing has improved. Continues to have diarrhea. She reports that she was previously doing 4 exchanges per day but frequency was decreased to 3 exchanges per day in July. She report metallic taste and states that she uses a red bag when this occurs. Objective - Vital Signs Vital signs: Vital Signs - 12hr 02/01/18 02/01/18 02/01/18 21:30 21:35 22:00 Pulse Rate 103 H 99 H Respiratory 20 22 19 Rate Blood Pressure 202/103 202/103 O2 Sat by Pulse 98 Oximetry 02/01/18 02/01/18 02/01/18 22:30 23:00 23:30 Pulse Rate 98 H 95 H 94 H Respiratory 16 15 17 Rate Blood Pressure 181/104 181/104 168/103 O2 Sat by Pulse 98 99 98 Oximetry 02/02/18 02/02/18 02/02/18 00:00 00:30 01:00 Pulse Rate 93 H 91 H Respiratory 15 16 Rate Blood Pressure 160/112 180/104 184/107 O2 Sat by Pulse 95 Oximetry 02/02/18 02/02/18 02/02/18 01:30 02:00 02:30 Pulse Rate Respiratory Rate Blood Pressure 184/107 206/118 196/115 O2 Sat by Pulse 97 98 95 Oximetry 02/02/18 02/02/18 02/02/18 03:00 03:30 04:00 Pulse Rate Respiratory Rate Blood Pressure 196/115 184/114 199/113 O2 Sat by Pulse 97 97 95 Oximetry 02/02/18 02/02/18 02/02/18 04:30 05:00 05:15 Pulse Rate 82 Respiratory Rate Blood Pressure 208/107 188/107 188/107 O2 Sat by Pulse 97 98 Oximetry 02/02/18 02/02/18 02/02/18 05:30 06:00 06:30 Pulse Rate Respiratory Rate Blood Pressure 193/104 195/108 177/91 O2 Sat by Pulse 98 95 96 Oximetry - General Appearance General appearance: well-developed, well-nourished EENT: ATNC Respiratory: Present: Clear to Ascultation Cardiology: regular, S1S2 Gastrointestinal: normal, no tenderness, no distended Integumentary: no rash, warm and dry Neurologic: alert and oriented x3 Musculoskeletal: other (no edema) Psychiatric: cooperative - Lab 02/01/18 13:34 02/03/18 04:38 Most recent lab results Calcium 7.8 mg/dL (8.4-10.2) L 02/02/18 Unknown
--- NOTE | 2018-02-02 11:48 | Consultation ---
History of Present Illness Consult date: 02/02/18 Consult reason: shortness of breath History of present illness: 62-year-old female presents to the ER with a complaint of cough, shortness of breath, chest pain and generalized weakness. The symptoms have been going on for the past few days. They're constant. Her chest discomfort occasionally radiates to the back. It otherwise does not have exacerbating or relieving factors. She denies DVT, pulmonary embolus risk factors. she has started PD May 2016. She denies prior history of cardiovascular disease Past History Past Medical History: diabetes, ESRD, hypertension, hypothyroidism Past Surgical History: appendectomy, cholecystectomy, thyroidectomy Social history: no significant social history Family history: hypertension Medications and Allergies Allergies Allergy/AdvReac Type Severity Reaction Status Date / Time blueberry Allergy Rash Verified 02/01/18 13:25 chocolate flavor Allergy Rash Verified 02/01/18 13:25 Fish Containing Products Allergy Anaphylaxis Verified 02/01/18 13:25 peanut Allergy Anaphylaxis Verified 02/01/18 13:25 shellfish derived Allergy Anaphylaxis Verified 02/01/18 13:25 strawberry Allergy Rash Verified 02/01/18 13:25 acetaminophen AdvReac Unknown Verified 02/01/18 13:25 codeine AdvReac Unknown Verified 02/01/18 13:25 iodine AdvReac Unknown Verified 02/01/18 13:25 lactase AdvReac Diarrhea Verified 02/01/18 13:25 Penicillins AdvReac Unknown Verified 02/01/18 13:25 Sulfa (Sulfonamide AdvReac Unknown Verified 02/01/18 13:25 Antibiotics) Home Medications Medication Instructions Recorded Confirmed Last Taken Type Aspirin [Aspirin TAB] 325 mg PO ONCE 02/15/15 02/15/15 Unknown History Furosemide [Lasix TAB] 90 mg PO BID 02/15/15 02/15/15 Unknown History Levothyroxine [Synthroid] 300 mcg PO QAM 02/15/15 02/02/18 Unknown History Lisinopril [Zestril TAB] 0 mg PO DAILY 02/15/15 02/15/15 Unknown History Metoprolol [Lopressor TAB] 0 mg PO BID 02/15/15 02/15/15 Unknown History HYDROcodone/APAP 5-325 [[place] 1 each PO Q6HR PRN #20 tablet 11/29/16 Unknown Rx 5/325] Active Meds: Active Medications Acetaminophen (Tylenol) 650 mg PO Q4H PRN PRN Reason: Pain MILD(1-3)/Fever >100.5/URRUTIA Aspirin (Aspirin) 325 mg PO ONCE [facility] Atorvastatin Calcium (Lipitor) 20 mg PO QHS [facility] Diphenhydramine HCl (Benadryl) 25 mg IV Q6H PRN PRN Reason: Itching Last Admin: 02/01/18 21:30 Dose: 25 mg Furosemide (Lasix) 90 mg PO BID [facility] Hydromorphone HCl (Dilaudid) 0.5 mg IV Q3H PRN PRN Reason: Pain , Severe (7-10) Levothyroxine Sodium (Synthroid) 112 mcg PO QAM@0600 [facility] Levothyroxine Sodium (Synthroid) 25 mcg PO DAILY@0600 [facility] Lisinopril (Zestril) 2.5 mg PO DAILY [facility] Metoprolol Tartrate (Lopressor) 25 mg PO BID [facility] Last Admin: 02/02/18 05:15 Dose: 25 mg Nitroglycerin (Nitrostat) 0.4 mg SL .Q5MIN PRN PRN Reason: Chest Pain Last Admin: 02/01/18 17:10 Dose: 0.4 mg Ondansetron HCl (Zofran) 4 mg IV Q8H PRN PRN Reason: Nausea And Vomiting Oxycodone/Acetaminophen (Percocet 5/325) 1 tab PO Q6H PRN PRN Reason: Pain, Moderate (4-6) Peritoneal Dialysis Solution (Dianeal Low Calcium W/2.5% Dextrose) 2,000 ml IP Q4HR [facility] Last Admin: 02/02/18 04:40 Dose: 2,000 ml Sodium Chloride (Sodium Chloride Flush Syringe 10 Ml) 10 ml IV BID [facility] Sodium Chloride (Sodium Chloride Flush Syringe 10 Ml) 10 ml IV PRN PRN PRN Reason: LINE FLUSH Review of Systems All systems: negative Physical Examination Vital Signs Temp Pulse Resp BP Pulse Ox 98.5 F 118 H 24 231/135 93 02/01/18 13:17 02/01/18 13:17 02/01/18 13:17 02/01/18 13:17 02/01/18 13:17 General appearance: no acute distress HEENT: Positive: PERRL Neck: Positive: neck supple Cardiac: Positive: Reg Rate and Rhythm Lungs: Positive: Decreased Breath Sounds (right lower lung cordero) Neuro: Positive: Grossly Intact Abdomen: Positive: Soft Results 02/01/18 13:34 02/02/18 Unknown Cardiac Enzymes 02/01/18 02/01/18 02/01/18 Range/Units 13:34 13:34 13:34 WBC 11.9 H (4.5-11.0) K/mm3 RBC 3.21 L (3.65-5.03) M/mm3 Hgb 9.7 L (10.1-14.3) gm/dl Hct 28.9 L (30.3-42.9) % MCV 90 (79-97) fl MCH 30 (28-32) pg MCHC 34 (30-34) % RDW 13.6 (13.2-15.2) % Plt Count 430 (140-440) K/mm3 Lymph % (Auto) 14.1 (13.4-35.0) % [place] % (Auto) 6.8 (0.0-7.3) % Eos % (Auto) 1.8 (0.0-4.3) % Baso % (Auto) 0.8 (0.0-1.8) % Lymph # 1.7 (1.2-5.4) K/mm3 [place]ardo # 0.8 (0.0-0.8) K/mm3 Eos # 0.2 (0.0-0.4) K/mm3 Baso # 0.1 (0.0-0.1) K/mm3 Seg Neutrophils % 76.5 H (40.0-70.0) % Seg Neutrophils # 9.1 H (1.8-7.7) K/mm3 Sodium 137 (137-145) mmol/L Potassium 4.1 (3.6-5.0) mmol/L Chloride 94.4 L (98-107) mmol/L Carbon Dioxide 19 L (22-30) mmol/L Anion Gap 28 mmol/L BUN 71 H (7-17) mg/dL Creatinine 14.1 H (0.7-1.2) mg/dL Estimated GFR 3 ml/min BUN/Creatinine Ratio 5 % Glucose 213 H (65-100) mg/dL Hemoglobin A1c (4-6) % Lactic Acid (0.7-2.0) mmol/L Calcium 8.1 L (8.4-10.2) mg/dL Troponin T 0.045 H (0.00-0.029) ng/mL NT-Pro-B Natriuret Pep (0-900) pg/mL Triglycerides 353 H (2-149) mg/dL Cholesterol 266 H (50-199) mg/dL LDL Cholesterol Direct 164 H (50-130) mg/dL HDL Cholesterol 31 L (40-59) mg/dL Cholesterol/HDL Ratio 8.58 % 02/01/18 02/01/18 02/01/18 Range/Units 17:04 17:04 23:00 WBC (4.5-11.0) K/mm3 RBC (3.65-5.03) M/mm3 Hgb (10.1-14.3) gm/dl Hct (30.3-42.9) % MCV (79-97) fl MCH (28-32) pg MCHC (30-34) % RDW (13.2-15.2) % Plt Count (140-440) K/mm3 Lymph % (Auto) (13.4-35.0) % [place] % (Auto) (0.0-7.3) % Eos % (Auto) (0.0-4.3) % Baso % (Auto) (0.0-1.8) % Lymph # (1.2-5.4) K/mm3 [place] # (0.0-0.8) K/mm3 Eos # (0.0-0.4) K/mm3 Baso # (0.0-0.1) K/mm3 Seg Neutrophils % (40.0-70.0) % Seg Neutrophils # (1.8-7.7) K/mm3 Sodium (137-145) mmol/L Potassium (3.6-5.0) mmol/L Chloride (98-107) mmol/L Carbon Dioxide (22-30) mmol/L Anion Gap mmol/L BUN (7-17) mg/dL Creatinine (0.7-1.2) mg/dL Estimated GFR ml/min BUN/Creatinine Ratio % Glucose (65-100) mg/dL Hemoglobin A1c 6.8 H (4-6) % Lactic Acid 1.20 (0.7-2.0) mmol/L Calcium (8.4-10.2) mg/dL Troponin T (0.00-0.029) ng/mL NT-Pro-B Natriuret Pep 92718 H (0-900) pg/mL Triglycerides (2-149) mg/dL Cholesterol (50-199) mg/dL LDL Cholesterol Direct (50-130) mg/dL HDL Cholesterol (40-59) mg/dL Cholesterol/HDL Ratio % 02/02/18 Range/Units Unknown WBC (4.5-11.0) K/mm3 RBC (3.65-5.03) M/mm3 Hgb (10.1-14.3) gm/dl Hct (30.3-42.9) % MCV (79-97) fl MCH (28-32) pg MCHC (30-34) % RDW (13.2-15.2) % Plt Count (140-440) K/mm3 Lymph % (Auto) (13.4-35.0) % [place] % (Auto) (0.0-7.3) % Eos % (Auto) (0.0-4.3) % Baso % (Auto) (0.0-1.8) % Lymph # (1.2-5.4) K/mm3 [place] # (0.0-0.8) K/mm3 Eos # (0.0-0.4) K/mm3 Baso # (0.0-0.1) K/mm3 Seg Neutrophils % (40.0-70.0) % Seg Neutrophils # (1.8-7.7) K/mm3 Sodium 135 L (137-145) mmol/L Potassium 4.1 (3.6-5.0) mmol/L Chloride 95.5 L (98-107) mmol/L Carbon Dioxide 21 L (22-30) mmol/L Anion Gap 23 mmol/L BUN 68 H (7-17) mg/dL Creatinine 13.3 H (0.7-1.2) mg/dL Estimated GFR 3 ml/min BUN/Creatinine Ratio 5 % Glucose 174 H (65-100) mg/dL Hemoglobin A1c (4-6) % Lactic Acid (0.7-2.0) mmol/L Calcium 7.8 L (8.4-10.2) mg/dL Troponin T (0.00-0.029) ng/mL NT-Pro-B Natriuret Pep (0-900) pg/mL Triglycerides (2-149) mg/dL Cholesterol (50-199) mg/dL LDL Cholesterol Direct (50-130) mg/dL HDL Cholesterol (40-59) mg/dL Cholesterol/HDL Ratio % Lipids 02/01/18 Range/Units 13:34 Triglycerides 353 H (2-149) mg/dL Cholesterol 266 H (50-199) mg/dL HDL Cholesterol 31 L (40-59) mg/dL Cholesterol/HDL Ratio 8.58 % CBC 02/01/18 Range/Units 13:34 WBC 11.9 H (4.5-11.0) K/mm3 RBC 3.21 L (3.65-5.03) M/mm3 Hgb 9.7 L (10.1-14.3) gm/dl Hct 28.9 L (30.3-42.9) % Plt Count 430 (140-440) K/mm3 Lymph # 1.7 (1.2-5.4) K/mm3 [place] # 0.8 (0.0-0.8) K/mm3 Eos # 0.2 (0.0-0.4) K/mm3 Baso # 0.1 (0.0-0.1) K/mm3 Comprehensive Metabolic Panel 02/01/18 02/02/18 Range/Units 13:34 Unknown Sodium 137 135 L (137-145) mmol/L Potassium 4.1 4.1 (3.6-5.0) mmol/L Chloride 94.4 L 95.5 L (98-107) mmol/L Carbon Dioxide 19 L 21 L (22-30) mmol/L BUN 71 H 68 H (7-17) mg/dL Creatinine 14.1 H 13.3 H (0.7-1.2) mg/dL Glucose 213 H 174 H (65-100) mg/dL Calcium 8.1 L 7.8 L (8.4-10.2) mg/dL - EKG Interpretation EKG: sinus rhythm EKG interpretations - Telemetry EKG Rhythm: Sinus Rhythm Assessment and Plan Shortness of breath and cough Abnormal CXR revealing right lower and right middle lobe infiltrates with a WBC 11.7 ESRD on peritoneal dialysis Systemic Hypertension Type II DM History of bilateral adrenal nodules MPI this admission - fixed anterior wall defect, probably due to breast attenuation artifact noted on planar images. No ischemia Echo this admission - LVEF 45-50%, mild global hypokinesis and mild to moderate MR Recommendations: Obtain CT chest to further evaluate right sided infiltrates Consider empiric antibiotic therapy for possible pneumonia No urgent invasive cardiac work-up is needed
[2018-02-02] MEDS: SYNTHROID PO SCH ×2 (12:51)
[2018-02-02] MEDS: SODIUM CHLORIDE FLUSH SYRINGE 10 ML IV SCH ×2 (12:52→22:50)
[2018-02-02] MEDS: LASIX PO SCH ×2 (13:02→22:50)
[2018-02-02] MEDS: ZESTRIL PO SCH (13:02)
[2018-02-02 13:51] LABS: Calcium 7.9 mg/dL (8.4-10.2)
--- NOTE | 2018-02-02 18:34 | Progress Note ---
Assessment and Plan Assessment and plan: 62-year-old -[place] female with past medical history significant for end stage renal disease on peritoneal dialysis, hypertension presented to the emergency department with complaints of cough, shortness of breath, and elevated blood pressure. Hypertensive urgency - Patient's blood pressure is uncontrolled and I added amlodipine and hydralazine - We will monitor closely and adjust as needed End-stage renal disease on PD - Nephrology consulted and recommended to increase frequency of dialysis from 3 times a day to 5 times a day Pneumonia - Evidenced by elevated white blood cell count and right middle and lower lobe infiltrates, need CT evaluation for further characterization - Patient is allergic to penicillin and I started with Levaquin Chest pain - Cardiology consulted and did a stress test which showed fixed anterior defect , and suggested it may be artifact due to breast shadowing - EF 40-45% - Recommended no further workup DVT prophylaxis - On heparin Disposition - Continue inpatient care History Interval history: Patient was seen and evaluated at the bedside, patient's chest pain and shortness of breath is getting better. Hospitalist Physical - Physical exam Narrative exam: Not in cardiopulmonary distress. The patient is obese Vital signs as documented. Head exam is unremarkable. No scleral icterus . Neck is without jugular venous distension, thyromegaly, or carotid bruits. Lungs are clear to auscultation. Cardiac exam reveals regular rate and Rhythm. First and second heart sounds normal. No murmurs, rubs or gallops. Abdominal exam reveals normal bowel sounds, no masses, no organomegaly and no aortic enlargement. Extremities are nonedematous and both femoral and pedal pulses are normal. [employer]: Alert and oriented 3. No focal weakness. - Constitutional Vitals: Temp Pulse Resp BP Pulse Ox 98.5 F 92 H 16 185/87 96 02/01/18 13:17 02/02/18 09:11 02/02/18 00:30 02/02/18 09:11 02/02/18 06:30 General appearance: Present: no acute distress Results - Labs CBC & Chem 7: 02/01/18 13:34 02/02/18 Unknown Labs: Laboratory Last Values WBC 11.9 K/mm3 (4.5-11.0) H 02/01/18 13:34 RBC 3.21 M/mm3 (3.65-5.03) L 02/01/18 13:34 Hgb 9.7 gm/dl (10.1-14.3) L 02/01/18 13:34 Hct 28.9 % (30.3-42.9) L 02/01/18 13:34 MCV 90 fl (79-97) 02/01/18 13:34 MCH 30 pg (28-32) 02/01/18 13:34 MCHC 34 % (30-34) 02/01/18 13:34 RDW 13.6 % (13.2-15.2) 02/01/18 13:34 Plt Count 430 K/mm3 (140-440) 02/01/18 13:34 Lymph % (Auto) 14.1 % (13.4-35.0) 02/01/18 13:34 [place] % (Auto) 6.8 % (0.0-7.3) 02/01/18 13:34 Eos % (Auto) 1.8 % (0.0-4.3) 02/01/18 13:34 Baso % (Auto) 0.8 % (0.0-1.8) 02/01/18 13:34 Lymph # 1.7 K/mm3 (1.2-5.4) 02/01/18 13:34 Hawkins # 0.8 K/mm3 (0.0-0.8) 02/01/18 13:34 Eos # 0.2 K/mm3 (0.0-0.4) 02/01/18 13:34 Baso # 0.1 K/mm3 (0.0-0.1) 02/01/18 13:34 Seg Neutrophils % 76.5 % (40.0-70.0) H 02/01/18 13:34 Seg Neutrophils # 9.1 K/mm3 (1.8-7.7) H 02/01/18 13:34 Sodium 135 mmol/L (137-145) L 02/02/18 Unknown Potassium 4.1 mmol/L (3.6-5.0) 02/02/18 Unknown Chloride 95.5 mmol/L (98-107) L 02/02/18 Unknown Carbon Dioxide 21 mmol/L (22-30) L 02/02/18 Unknown Anion Gap 23 mmol/L 02/02/18 Unknown BUN 68 mg/dL (7-17) H 02/02/18 Unknown Creatinine 13.3 mg/dL (0.7-1.2) H 02/02/18 Unknown Estimated GFR 3 ml/min 02/02/18 Unknown BUN/Creatinine Ratio 5 % 02/02/18 Unknown Glucose 174 mg/dL (65-100) H 02/02/18 Unknown Hemoglobin A1c 6.8 % (4-6) H 02/01/18 23:00 Lactic Acid 1.20 mmol/L (0.7-2.0) 02/01/18 17:04 Calcium 7.8 mg/dL (8.4-10.2) L 02/02/18 Unknown Troponin T 0.043 ng/mL (0.00-0.029) H 02/02/18 12:41 NT-Pro-B Natriuret Pep 29587 pg/mL (0-900) H 02/01/18 17:04 Triglycerides 353 mg/dL (2-149) H 02/01/18 13:34 Cholesterol 266 mg/dL (50-199) H 02/01/18 13:34 LDL Cholesterol Direct 164 mg/dL (50-130) H 02/01/18 13:34 HDL Cholesterol 31 mg/dL (40-59) L 02/01/18 13:34 Cholesterol/HDL Ratio 8.58 % 02/01/18 13:34
--- NOTE | 2018-02-02 18:53 | Cat Scan Report ---
FINAL REPORT EXAM: CT CHEST WO CON HISTORY: Evaluate RLL and RML infiltrates TECHNIQUE: CT examination of the chest without IV contrast PRIORS: Two-view chest 02/01/[address] 11/29/2016 FINDINGS: Slight cardiomegaly without pericardial effusion. Coronary artery calcification is slight. Normal caliber thoracic aorta with slight calcified atherosclerotic plaque. Normal-appearing esophagus. No hilar mass or mediastinal adenopathy. Mediastinal evaluation is limited by lack of IV contrast. The degenerative change regional skeleton. Moderate bilateral upper abdominal ascites adjacent to the liver and spleen. Partially imaged bilateral adrenal nodules noted. Visible portions appear unchanged from November 2016. Multiple nonspecific patchy opacities are scattered throughout both lungs diffusely. These involve upper and lower lobes bilaterally, more prominent on the right. No pneumothorax. Small right pleural effusion layers posteriorly. No definite evidence of consolidated lung mass. IMPRESSION: Multiple bilateral pulmonary parenchymal new patchy opacities may be atelectasis, edema, scarring, and/or multifocal pneumonia Slight cardiomegaly and slight coronary artery calcification Partially visible bilateral upper abdominal ascites appears relatively similar to November 2016 Visible portion of bilateral adrenal nodules appear unchanged from November 2016 Small right pleural effusion layers posteriorly, new
[2018-02-02] MEDS: NORVASC PO SCH (19:49)
[2018-02-02] MEDS: APRESOLINE PO SCH (19:49)
--- NOTE | 2018-02-02 21:19 | Treadmill Report ---
INDICATION: Shortness of breath and chest pain. ORDERING PHYSICIAN: Sangeeta Pichardo MD FINDINGS: 1. The left ventricular cavity is mildly dilated. There is evidence of moderate left ventricular systolic dysfunction with an ejection fraction measured at 31%. There is evidence of moderate global left ventricular hypokinesis. There is evidence of a large, fixed anterior wall defect noted both on the rest and stress imaging. The breast attenuation artifact versus prior infarction in the LAD distribution cannot be excluded. CONCLUSION: 1. Abnormal myocardial perfusion scan revealing a mildly dilated left ventricular cavity with moderate global left ventricular hypokinesis and an ejection fraction measured at 31%. 2. Large, fixed anterior wall defect noted both on rest and stress imaging. A breast attenuation artifact versus prior LAD infarction cannot be excluded. 3. Clinical correlation is recommended. JOB# [id number] JUANCARLOS/SCOTT
[2018-02-02] MEDS: LEVAQUIN 500MG/100ML 500 MG/100 ML BAG IV SCH (22:00)
[2018-02-02] MEDS: HEPARIN SUB-Q SCH (22:50)
[2018-02-03] MEDS: DIANEAL LOW CALCIUM W/2.5% DEXTROSE IP SCH ×6 (02:40→22:00)
[2018-02-03] MEDS ORDERED: REGLAN IV PRN (04:37)
[2018-02-03 06:18] LABS: Calcium 7.6 mg/dL (8.4-10.2)
[2018-02-03] MEDS: SYNTHROID PO SCH ×2 (06:54)
[2018-02-03] MEDS: LASIX PO SCH ×2 (10:04→21:12)
[2018-02-03] MEDS: APRESOLINE PO SCH ×3 (10:04→21:15)
[2018-02-03] MEDS: ZESTRIL PO SCH (10:05)
[2018-02-03] MEDS: LOPRESSOR PO SCH ×2 (10:08→21:14)
[2018-02-03] MEDS: NORVASC PO SCH (10:09)
--- NOTE | 2018-02-03 10:09 | Progress Note ---
Assessment and Plan Impression: * ESRD on CAPD * Uremia secondary to inadequate dialysis * Accelerated hypertension - improved * Pulmonary edema * Anemia secondary to ESRD Plan: * Continue CAPD - 6 exchanges daily * Abx per primary team * Continue antiHTN medications * Dose medications for renal function * Avoid potential nephrotoxins Subjective Date of service: 02/03/18 Interval history: Patient reports nausea. Breathing improved Objective - Vital Signs Vital signs: Vital Signs - 12hr 02/02/18 02/03/18 02/03/18 22:55 00:06 00:11 Temperature Pulse Rate 100 H 148 H Respiratory 19 Rate Blood Pressure 151/88 112/76 112/76 O2 Sat by Pulse 100 Oximetry 02/03/18 02/03/18 02/03/18 00:15 00:21 00:30 Temperature 98.2 F Pulse Rate 130 H 131 H Respiratory 18 23 20 Rate Blood Pressure 173/90 112/76 122/77 O2 Sat by Pulse 100 98 Oximetry 02/03/18 02/03/18 02/03/18 00:41 00:51 01:00 Temperature Pulse Rate 136 H 125 H 122 H Respiratory 21 19 20 Rate Blood Pressure 112/76 112/76 137/79 O2 Sat by Pulse 99 99 100 Oximetry 02/03/18 02/03/18 02/03/18 01:11 02:03 02:11 Temperature Pulse Rate 129 H Respiratory 22 Rate Blood Pressure 122/77 123/75 123/75 O2 Sat by Pulse 100 100 Oximetry 02/03/18 02/03/18 02/03/18 02:21 02:31 02:41 Temperature Pulse Rate Respiratory Rate Blood Pressure 123/75 123/75 137/79 O2 Sat by Pulse 99 99 99 Oximetry 02/03/18 02/03/18 02/03/18 02:51 03:00 03:11 Temperature Pulse Rate Respiratory Rate Blood Pressure 123/75 122/71 122/71 O2 Sat by Pulse 98 98 Oximetry 02/03/18 02/03/18 02/03/18 03:21 03:31 03:41 Temperature Pulse Rate Respiratory Rate Blood Pressure 122/71 122/71 122/71 O2 Sat by Pulse 98 99 99 Oximetry 02/03/18 02/03/18 05:16 06:00 Temperature 98.3 F Pulse Rate 77 85 Respiratory 18 Rate Blood Pressure 148/74 O2 Sat by Pulse 95 Oximetry - General Appearance General appearance: well-developed, well-nourished EENT: ATNC Cardiology: regular, S1S2 Gastrointestinal: normal, no tenderness, no distended Integumentary: no rash, warm and dry Neurologic: no focal deficit Psychiatric: cooperative - Lab 02/03/18 13:29 02/03/18 04:38 Most recent lab results Calcium 7.6 mg/dL (8.4-10.2) L 02/03/18 04:38
[2018-02-03] MEDS: HEPARIN SUB-Q SCH ×2 (10:12→21:19)
[2018-02-03] MEDS: SODIUM CHLORIDE FLUSH SYRINGE 10 ML IV SCH ×2 (10:12→21:16)
[2018-02-03] MEDS: ASPIRIN PO SCH (10:12)
--- NOTE | 2018-02-03 11:03 | Progress Note ---
Assessment and Plan Shortness of breath and cough Abnormal CXR revealing right lower and right middle lobe infiltrates with a WBC 11.7 ESRD on peritoneal dialysis Systemic Hypertension Type II DM History of bilateral adrenal nodules MPI this admission - fixed anterior wall defect, probably due to breast attenuation artifact noted on planar images. No ischemia Echo this admission - LVEF 45-50%, mild global hypokinesis and mild to moderate MR Conservative cardiac management. Subjective Date of service: 02/03/18 Interval history: Patient is resting in bed comfortably. She denies chest pain and shortness of breath. Objective Vital Signs Temp Pulse Resp BP Pulse Ox 02/03/18 06:00 85 02/03/18 05:16 98.3 F 77 18 148/74 95 02/03/18 03:41 122/71 99 02/03/18 03:31 122/71 99 02/03/18 03:21 122/71 98 02/03/18 03:11 122/71 98 02/03/18 03:00 122/71 02/03/18 02:51 123/75 98 02/03/18 02:41 137/79 99 02/03/18 02:31 123/75 99 02/03/18 02:21 123/75 99 02/03/18 02:11 123/75 100 02/03/18 02:03 123/75 02/03/18 01:11 129 H 22 122/77 100 02/03/18 01:00 122 H 20 137/79 100 02/03/18 00:51 125 H 19 112/76 99 02/03/18 00:41 136 H 21 112/76 99 02/03/18 00:30 131 H 20 122/77 98 02/03/18 00:21 130 H 23 112/76 100 02/03/18 00:15 98.2 F 18 173/90 02/03/18 00:11 148 H 19 112/76 100 02/03/18 00:06 112/76 02/02/18 22:55 100 H 151/88 02/02/18 22:00 100 H 22 02/02/18 21:21 98 H 13 123/71 02/02/18 21:11 88 10 L 123/71 02/02/18 21:00 96 H 7 L 123/71 02/02/18 20:51 92 H 20 104/85 02/02/18 20:41 87 13 104/85 02/02/18 20:39 95 H 13 104/85 100 02/02/18 20:30 87 15 104/85 100 02/02/18 20:21 91 H 13 130/75 100 02/02/18 20:11 101 H 22 111/67 02/02/18 20:01 100 H 12 111/67 02/02/18 19:51 97 H 13 111/67 02/02/18 19:49 177/99 02/02/18 19:41 93 H 9 L 111/67 02/02/18 19:31 94 H 14 115/77 100 02/02/18 19:21 111 H 22 111/67 100 02/02/18 19:11 94 H 21 111/67 99 02/02/18 19:00 92 H 12 111/67 99 02/02/18 18:55 94 H 23 113/68 99 02/02/18 18:41 104 H 20 110/68 99 02/02/18 18:31 96 H 19 110/68 100 02/02/18 18:21 104 H 13 110/68 99 02/02/18 18:11 101 H 24 110/68 98 02/02/18 18:01 93 H 15 110/68 99 02/02/18 17:51 100 H 15 110/68 99 02/02/18 17:41 104 H 12 98 02/02/18 17:30 99 H 19 110/68 89 02/02/18 17:21 101 H 17 99 02/02/18 17:10 100 H 17 125/71 98 02/02/18 17:00 100 H 8 L 125/71 99 02/02/18 16:50 101 H 20 123/79 100 02/02/18 16:40 94 H 17 123/79 100 02/02/18 16:30 99 H 20 123/79 02/02/18 16:20 100 H 9 L 132/94 99 02/02/18 16:10 107 H 9 L 132/94 99 02/02/18 16:00 132/94 100 02/02/18 15:59 132/94 - Physical Examination General: No Apparent Distress HEENT: Positive: PERRL Cardiac: Positive: Reg Rate and Rhythm Lungs: Positive: Decreased Breath Sounds - Labs and Meds Comprehensive Metabolic Panel 02/02/18 02/03/18 Range/Units 12:44 04:38 Sodium 135 L 137 (137-145) mmol/L Potassium 3.5 L 3.5 L (3.6-5.0) mmol/L Chloride 93.7 L 95.6 L (98-107) mmol/L Carbon Dioxide 22 22 (22-30) mmol/L BUN 63 H 62 H (7-17) mg/dL Creatinine 13.4 H 12.5 H (0.7-1.2) mg/dL Glucose 158 H 195 H (65-100) mg/dL Calcium 7.9 L 7.6 L (8.4-10.2) mg/dL
--- NOTE | 2018-02-03 12:55 | Progress Note ---
Assessment and Plan Assessment and plan: 62-year-old -Surinamese female with past medical history significant for end stage renal disease on peritoneal dialysis, hypertension presented to the emergency department with complaints of cough, shortness of breath, and elevated blood pressure. Hypertensive urgency - Patient's blood pressure was uncontrolled now controlled after I added amlodipine and hydralazine - We will monitor closely and adjust as needed End-stage renal disease on PD - Nephrology consulted and recommended to increase frequency of dialysis from 3 times a day to 5 times a day Pneumonia - Evidenced by elevated white blood cell count and right middle and lower lobe infiltrates, CT showed suspicious for pneumonia - Patient is allergic to penicillin and I started with Levaquin, she also complains vomiting after levaquin, consider ID consult - Repeat CBC Chest pain - Cardiology consulted and did a stress test which showed fixed anterior defect , and suggested it may be artifact due to breast shadowing - EF 40-45% - Recommended no further workup DVT prophylaxis - On heparin Disposition - Patient wants to go home but patient needs 1 more day of antibiotics and if she is not able to tolerate levaquin will get ID consult. - Continue inpatient care History Interval history: Patient was seen and evaluated at the bedside, patient's chest pain and shortness of breath is getting better. patient complains vomiting, and diarrhea this morning, said after levaquin. Hospitalist Physical - Physical exam Narrative exam: Not in cardiopulmonary distress. The patient is obese Vital signs as documented. Head exam is unremarkable. No scleral icterus . Neck is without jugular venous distension, thyromegaly, or carotid bruits. Lungs are clear to auscultation. Cardiac exam reveals regular rate and Rhythm. First and second heart sounds normal. No murmurs, rubs or gallops. Abdominal exam reveals normal bowel sounds, no masses, no organomegaly and no aortic enlargement. Extremities are nonedematous and both femoral and pedal pulses are normal. PIPE FITTER MARINE: Alert and oriented 3. No focal weakness. - Constitutional Vitals: Temp Pulse Resp BP Pulse Ox 98.3 F 85 18 148/74 95 02/03/18 05:16 02/03/18 06:00 02/03/18 05:16 02/03/18 05:16 02/03/18 05:16 General appearance: Present: no acute distress Results - Labs CBC & Chem 7: 02/01/18 13:34 02/03/18 04:38 Labs: Laboratory Last Values WBC 11.9 K/mm3 (4.5-11.0) H 02/01/18 13:34 RBC 3.21 M/mm3 (3.65-5.03) L 02/01/18 13:34 Hgb 9.7 gm/dl (10.1-14.3) L 02/01/18 13:34 Hct 28.9 % (30.3-42.9) L 02/01/18 13:34 MCV 90 fl (79-97) 02/01/18 13:34 MCH 30 pg (28-32) 02/01/18 13:34 MCHC 34 % (30-34) 02/01/18 13:34 RDW 13.6 % (13.2-15.2) 02/01/18 13:34 Plt Count 430 K/mm3 (140-440) 02/01/18 13:34 Lymph % (Auto) 14.1 % (13.4-35.0) 02/01/18 13:34 [place] % (Auto) 6.8 % (0.0-7.3) 02/01/18 13:34 Eos % (Auto) 1.8 % (0.0-4.3) 02/01/18 13:34 Baso % (Auto) 0.8 % (0.0-1.8) 02/01/18 13:34 Lymph # 1.7 K/mm3 (1.2-5.4) 02/01/18 13:34 [place] # 0.8 K/mm3 (0.0-0.8) 02/01/18 13:34 Eos # 0.2 K/mm3 (0.0-0.4) 02/01/18 13:34 Baso # 0.1 K/mm3 (0.0-0.1) 02/01/18 13:34 Seg Neutrophils % 76.5 % (40.0-70.0) H 02/01/18 13:34 Seg Neutrophils # 9.1 K/mm3 (1.8-7.7) H 02/01/18 13:34 Sodium 137 mmol/L (137-145) 02/03/18 04:38 Potassium 3.5 mmol/L (3.6-5.0) L 02/03/18 04:38 Chloride 95.6 mmol/L (98-107) L 02/03/18 04:38 Carbon Dioxide 22 mmol/L (22-30) 02/03/18 04:38 Anion Gap 23 mmol/L 02/03/18 04:38 BUN 62 mg/dL (7-17) H 02/03/18 04:38 Creatinine 12.5 mg/dL (0.7-1.2) H 02/03/18 04:38 Estimated GFR 4 ml/min 02/03/18 04:38 BUN/Creatinine Ratio 5 % 02/03/18 04:38 Glucose 195 mg/dL (65-100) H 02/03/18 04:38 POC Glucose 163 (70-105) H 02/02/18 18:20 Hemoglobin A1c 6.8 % (4-6) H 02/01/18 23:00 Lactic Acid 1.20 mmol/L (0.7-2.0) 02/01/18 17:04 Calcium 7.6 mg/dL (8.4-10.2) L 02/03/18 04:38 Troponin T 0.043 ng/mL (0.00-0.029) H 02/02/18 12:41 NT-Pro-B Natriuret Pep 91919 pg/mL (0-900) H 02/01/18 17:04 Triglycerides 353 mg/dL (2-149) H 02/01/18 13:34 Cholesterol 266 mg/dL (50-199) H 02/01/18 13:34 LDL Cholesterol Direct 164 mg/dL (50-130) H 02/01/18 13:34 HDL Cholesterol 31 mg/dL (40-59) L 02/01/18 13:34 Cholesterol/HDL Ratio 8.58 % 02/01/18 13:34
[2018-02-03 14:07] LABS: Basophils # (Auto) 0.1 K/mm3 (0.0-0.1); Basophils % (Auto) 0.7 % (0.0-1.8); Eosinophils % (Auto) 0.5 % (0.0-4.3); Hematocrit 26.2 % (30.3-42.9); Hemoglobin 8.9 gm/dl (10.1-14.3); Lymphocytes # (Auto) 0.9 K/mm3 (1.2-5.4); Lymphocytes % (Auto) 8.6 % (13.4-35.0); Mean Corpuscular HGB Conc 34 % (30-34); Mean Corpuscular Hemoglobin 31 pg (28-32); Mean Corpuscular Volume 90 fl (79-97); Monocytes # (Auto) 0.6 K/mm3 (0.0-0.8); Monocytes % (Auto) 5.6 % (0.0-7.3); Platelet Count 398 K/mm3 (140-440); Red Blood Count 2.91 M/mm3 (3.65-5.03); Red Cell Distribution Width 13.7 % (13.2-15.2)
[2018-02-03] MEDS ORDERED: LANTUS SUB-Q ONE (22:00)
[2018-02-03] MEDS: HumaLOG SUB-Q SCH (23:03)
[2018-02-04] MEDS: TYLENOL PO PRN ×2 (02:13→15:24)
[2018-02-04] MEDS: DIANEAL LOW CALCIUM W/2.5% DEXTROSE IP SCH ×3 (02:48→21:31)
[2018-02-04 05:43] LABS: Basophils # (Auto) 0.1 K/mm3 (0.0-0.1); Eosinophils # (Auto) 0.2 K/mm3 (0.0-0.4); Eosinophils % (Auto) 1.6 % (0.0-4.3); Hematocrit 26.6 % (30.3-42.9); Hemoglobin 9.1 gm/dl (10.1-14.3); Lymphocytes # (Auto) 0.8 K/mm3 (1.2-5.4); Lymphocytes % (Auto) 7.9 % (13.4-35.0); Mean Corpuscular HGB Conc 34 % (30-34); Mean Corpuscular Hemoglobin 31 pg (28-32); Mean Corpuscular Volume 90 fl (79-97); Monocytes # (Auto) 0.8 K/mm3 (0.0-0.8); Monocytes % (Auto) 7.6 % (0.0-7.3); Platelet Count 374 K/mm3 (140-440); Red Blood Count 2.96 M/mm3 (3.65-5.03); Red Cell Distribution Width 13.7 % (13.2-15.2)
[2018-02-04 06:12] LABS: Calcium 7.7 mg/dL (8.4-10.2)
[2018-02-04] MEDS: SYNTHROID PO SCH ×2 (06:34→06:35)
--- NOTE | 2018-02-04 10:36 | Consultation ---
History of Present Illness - Reason for Consult Consult date: 02/04/18 pneumonia and pen allergy Requesting physician: SHIRA SUERO - History of Present Illness 62 y/o female with history of ESRD on peritoneal dialysis, hypertension; admitted on 02/01/18 due to 3 day history of worsening dry cough, shortness of breath. Denies sputum production, fever, chills, sick contacts. Denies N/V/D. Reports some leg edema bilateral. She was c/o chest pain. In the ED, temp 98.5, R 118, R24, BP 231/135. WBC 11.9. Hg 9.7. Plat 430. Creat 12. 3.3. CXT bibasilar opacities. CT chest showed multiple bilateral parenchimal patchy opacities. Microbiology: Blood cultures: 02/01 neg Current Antimicrobials: Levaquin Previous Antimicrobials: Past History Past Medical History: diabetes, ESRD, hypertension, hypothyroidism Past Surgical History: appendectomy, cholecystectomy, thyroidectomy Social history: no significant social history Family history: hypertension Medications and Allergies Allergies Allergy/AdvReac Type Severity Reaction Status Date / Time blueberry Allergy Rash Verified 02/01/18 13:25 chocolate flavor Allergy Rash Verified 02/01/18 13:25 Fish Containing Products Allergy Anaphylaxis Verified 02/01/18 13:25 peanut Allergy Anaphylaxis Verified 02/01/18 13:25 shellfish derived Allergy Anaphylaxis Verified 02/01/18 13:25 strawberry Allergy Rash Verified 02/01/18 13:25 acetaminophen AdvReac Unknown Verified 02/01/18 13:25 codeine AdvReac Unknown Verified 02/01/18 13:25 iodine AdvReac Unknown Verified 02/01/18 13:25 lactase AdvReac Diarrhea Verified 02/01/18 13:25 Penicillins AdvReac Unknown Verified 02/01/18 13:25 Sulfa (Sulfonamide AdvReac Unknown Verified 02/01/18 13:25 Antibiotics) Home Medications Medication Instructions Recorded Confirmed Last Taken Type Aspirin [Aspirin TAB] 325 mg PO ONCE 02/15/15 02/03/18 Unknown History Furosemide [Lasix TAB] 80 mg PO BID 02/15/15 02/03/18 Unknown History Levothyroxine [Synthroid] 300 mcg PO QAM 02/15/15 02/02/18 Unknown History Hydralazine HCl 25 mg PO BID 02/02/18 02/02/18 Unknown History Simvastatin [Zocor TAB] 40 mg PO DAILY 02/02/18 02/03/18 Unknown History Insulin Glargine,Hum.rec.anlog 45 unit SQ DAILY 02/03/18 02/03/18 Unknown History [Tejas Villaltatundereymundo] Active Meds: Active Medications Acetaminophen (Tylenol) 650 mg PO Q4H PRN PRN Reason: Pain MILD(1-3)/Fever >100.5/URRUTIA Last Admin: 02/04/18 02:13 Dose: 650 mg Amlodipine Besylate (Norvasc) 10 mg PO QDAY [facility] Last Admin: 02/03/18 10:09 Dose: 10 mg Aspirin (Aspirin) 325 mg PO DAILY [facility] Last Admin: 02/03/18 10:12 Dose: 325 mg Atorvastatin Calcium (Lipitor) 20 mg PO QHS [facility] Last Admin: 02/03/18 21:15 Dose: 20 mg Diphenhydramine HCl (Benadryl) 25 mg IV Q6H PRN PRN Reason: Itching Last Admin: 02/01/18 21:30 Dose: 25 mg Heparin Sodium (Porcine) (Heparin) 5,000 unit SUB-Q Q12HR [facility] Last Admin: 02/03/18 21:19 Dose: 5,000 unit Hydralazine HCl (Apresoline) 100 mg PO TID [facility] Last Admin: 02/03/18 21:15 Dose: 100 mg Hydromorphone HCl (Dilaudid) 0.5 mg IV Q3H PRN PRN Reason: Pain , Severe (7-10) Levofloxacin/Dextrose (Levaquin 500mg/100ml) 500 mg in 100 mls @ 100 mls/hr IV Q48H [facility]; Protocol Last Admin: 02/02/18 22:00 Dose: 100 mls/hr Insulin Human Lispro (Humalog) 0 unit SUB-Q ACHS [facility]; Protocol Last Admin: 02/03/18 23:03 Dose: 4 unit Levothyroxine Sodium (Synthroid) 112 mcg PO QAM@0600 [facility] Last Admin: 02/04/18 06:34 Dose: 112 mcg Levothyroxine Sodium (Synthroid) 25 mcg PO DAILY@0600 [facility] Last Admin: 02/04/18 06:35 Dose: 25 mcg Lisinopril (Zestril) 2.5 mg PO DAILY [facility] Last Admin: 02/03/18 10:05 Dose: 2.5 mg Metoclopramide HCl (Reglan) 5 mg IV Q6H PRN PRN Reason: Nausea And Vomiting Last Admin: 02/03/18 04:58 Dose: 5 mg Metoprolol Tartrate (Lopressor) 25 mg PO BID [facility] Last Admin: 02/03/18 21:14 Dose: 25 mg Nitroglycerin (Nitrostat) 0.4 mg SL .Q5MIN PRN PRN Reason: Chest Pain Last Admin: 02/01/18 17:10 Dose: 0.4 mg Ondansetron HCl (Zofran) 4 mg IV Q8H PRN PRN Reason: Nausea And Vomiting Last Admin: 02/03/18 02:41 Dose: 4 mg Oxycodone/Acetaminophen (Percocet 5/325) 1 tab PO Q6H PRN PRN Reason: Pain, Moderate (4-6) Last Admin: 02/03/18 02:43 Dose: 1 tab Peritoneal Dialysis Solution (Dianeal Low Calcium W/2.5% Dextrose) 2,000 ml IP Q4HR [facility] Last Admin: 02/04/18 06:38 Dose: 2,000 ml Sodium Chloride (Sodium Chloride Flush Syringe 10 Ml) 10 ml IV BID [facility] Last Admin: 02/03/18 21:16 Dose: 10 ml Sodium Chloride (Sodium Chloride Flush Syringe 10 Ml) 10 ml IV PRN PRN PRN Reason: LINE FLUSH Physical Examination - Physical Exam Narrative exam: General appearance: Alert in NAD, conversant Eyes: anicteric sclerae, moist conjunctivae; no lid-lag; PERRLA HENT: Atraumatic; oropharynx clear Neck: Trachea midline; supple, no thyromegaly or lymphadenopathy Lungs: CTA, with normal respiratory effort and no intercostal retractions CV: RRR, no murmurs Abdomen: Soft, non-tender;+PD cath Extremities: [place] LE edema Skin: Normal temperature, turgor and texture; no rash, ulcers or subcutaneous nodules Psych: Appropriate affect, alert and oriented to person, place and time. Neuro: alert and oriented x 3. Moving all extermities Lines: - Constitutional Vitals: Vital Signs Temp Pulse Resp BP Pulse Ox 98.4 F 75 18 164/85 99 02/04/18 08:11 02/04/18 08:11 02/04/18 08:11 02/04/18 08:11 02/04/18 08:11 Temperature -Last 24 Hours Temperature 98.4 F Temperature 97.7 F Temperature 98.4 F Temperature 98.4 F Temperature 98.1 F Results - Labs CBC & Chem 7: 02/04/18 04:48 02/04/18 04:48 Labs: Abnormal lab results 02/03/18 02/03/18 02/03/18 Range/Units 13:04 13:29 17:40 RBC 2.91 L (3.65-5.03) M/mm3 Hgb 8.9 L (10.1-14.3) gm/dl Hct 26.2 L (30.3-42.9) % Lymph % (Auto) 8.6 L (13.4-35.0) % [place] % (Auto) (0.0-7.3) % Lymph # 0.9 L (1.2-5.4) K/mm3 Seg Neutrophils % 84.6 H (40.0-70.0) % Seg Neutrophils # 9.1 H (1.8-7.7) K/mm3 Potassium (3.6-5.0) mmol/L Chloride (98-107) mmol/L BUN (7-17) mg/dL Creatinine (0.7-1.2) mg/dL Glucose (65-100) mg/dL POC Glucose 208 H 250 H (70-105) Calcium (8.4-10.2) mg/dL 02/03/18 02/04/18 02/04/18 Range/Units 23:00 04:48 04:48 RBC 2.96 L (3.65-5.03) M/mm3 Hgb 9.1 L (10.1-14.3) gm/dl Hct 26.6 L (30.3-42.9) % Lymph % (Auto) 7.9 L (13.4-35.0) % [place] % (Auto) 7.6 H (0.0-7.3) % Lymph # 0.8 L (1.2-5.4) K/mm3 Seg Neutrophils % 81.9 H (40.0-70.0) % Seg Neutrophils # 8.1 H (1.8-7.7) K/mm3 Potassium 3.3 L (3.6-5.0) mmol/L Chloride 94.2 L (98-107) mmol/L BUN 57 H (7-17) mg/dL Creatinine 12.1 H (0.7-1.2) mg/dL Glucose 186 H (65-100) mg/dL POC Glucose 207 H (70-105) Calcium 7.7 L (8.4-10.2) mg/dL 02/04/18 Range/Units 07:13 RBC (3.65-5.03) M/mm3 Hgb (10.1-14.3) gm/dl Hct (30.3-42.9) % Lymph % (Auto) (13.4-35.0) % [place] % (Auto) (0.0-7.3) % Lymph # (1.2-5.4) K/mm3 Seg Neutrophils % (40.0-70.0) % Seg Neutrophils # (1.8-7.7) K/mm3 Potassium (3.6-5.0) mmol/L Chloride (98-107) mmol/L BUN (7-17) mg/dL Creatinine (0.7-1.2) mg/dL Glucose (65-100) mg/dL POC Glucose 176 H (70-105) Calcium (8.4-10.2) mg/dL Assessment and Plan Assessment: 1) Sepsis: Present on admission, manifested by tachycardia, mild leukocytosis. Etiology most likely presumed CAP. 2) Presumed CAP: -CXT bibasilar opacities. -CT chest showed multiple bilateral parenchimal patchy opacities. 3) ESRD on peritoneal dialysis 4) Hypertension 5) Pen allergy Plan: -follow-up blood cultures -check legionella and Strep pneumoniae urine ag -continue levaquin renlly dosed with zofran -monitor nausea and diarrhea -if she cannot tolerate levaquin consider doxycycline I am rounding on Wednesday Thank you for your consultation, will follow up with you. Nevin Victor MD Infectious Diseases Specialist [facility] ([facility] M [phone] O [phone]
--- NOTE | 2018-02-04 10:37 | Progress Note ---
Assessment and Plan Shortness of breath and cough Abnormal CXR revealing right lower and right middle lobe infiltrates with a WBC 11.7 ESRD on peritoneal dialysis Systemic Hypertension Type II DM History of bilateral adrenal nodules MPI this admission - fixed anterior wall defect, probably due to breast attenuation artifact noted on planar images. No ischemia Echo this admission - LVEF 45-50%, mild global hypokinesis and mild to moderate MR Conservative cardiac management. Once, discharged patient will follow up with [facility] as scheduled at 210p. Subjective Date of service: 02/04/18 Interval history: Patient is resting in bed comfortably. She has no cardiac complaints. Objective Vital Signs Temp Pulse Resp BP BP Pulse Ox 02/04/18 08:11 98.4 F 75 18 164/85 99 02/04/18 04:12 97.7 F 81 20 145/79 91 02/03/18 23:08 98.4 F 76 20 129/55 100 02/03/18 22:00 20 02/03/18 21:42 98.4 F 86 20 183/95 02/03/18 21:14 86 183/95 02/03/18 15:25 98.1 F 81 18 161/86 92 - Physical Examination General: No Apparent Distress HEENT: Positive: PERRL Cardiac: Positive: Reg Rate and Rhythm Neuro: Positive: Grossly Intact - Labs and Meds CBC 02/03/18 02/04/18 Range/Units 13:29 04:48 WBC 10.7 10.0 (4.5-11.0) K/mm3 RBC 2.91 L 2.96 L (3.65-5.03) M/mm3 Hgb 8.9 L 9.1 L (10.1-14.3) gm/dl Hct 26.2 L 26.6 L (30.3-42.9) % Plt Count 398 374 (140-440) K/mm3 Lymph # 0.9 L 0.8 L (1.2-5.4) K/mm3 [place] # 0.6 0.8 (0.0-0.8) K/mm3 Eos # 0.0 0.2 (0.0-0.4) K/mm3 Baso # 0.1 0.1 (0.0-0.1) K/mm3 Comprehensive Metabolic Panel 02/04/18 Range/Units 04:48 Sodium 137 (137-145) mmol/L Potassium 3.3 L (3.6-5.0) mmol/L Chloride 94.2 L (98-107) mmol/L Carbon Dioxide 23 (22-30) mmol/L BUN 57 H (7-17) mg/dL Creatinine 12.1 H (0.7-1.2) mg/dL Glucose 186 H (65-100) mg/dL Calcium 7.7 L (8.4-10.2) mg/dL
[2018-02-04] MEDS: NORVASC PO SCH (11:44)
[2018-02-04] MEDS: ZESTRIL PO SCH (11:45)
[2018-02-04] MEDS: ASPIRIN PO SCH (11:45)
[2018-02-04] MEDS: APRESOLINE PO SCH ×3 (11:45→21:30)
[2018-02-04] MEDS: HEPARIN SUB-Q SCH (11:45)
[2018-02-04] MEDS: LOPRESSOR PO SCH (11:45)
[2018-02-04] MEDS: SODIUM CHLORIDE FLUSH SYRINGE 10 ML IV SCH (11:46)
[2018-02-04] MEDS: HumaLOG SUB-Q SCH ×3 (14:10→18:47)
--- NOTE | 2018-02-04 14:47 | Progress Note ---
Assessment and Plan Impression: * ESRD on CAPD * Uremia secondary to inadequate dialysis * Accelerated hypertension - improved * Pulmonary edema * Anemia secondary to ESRD Plan: * Continue CAPD - 6 exchanges daily * Abx per primary team * Continue antiHTN medications * Dose medications for renal function * Avoid potential nephrotoxins * will need more aggressive outpatient regimen Subjective Date of service: 02/04/18 Principal diagnosis: esrd Interval history: resting in bed today Objective - Exam Narrative Exam: General appearance: well-developed, well-nourished EENT: ATNC Cardiology: regular, S1S2 Gastrointestinal: normal, no tenderness, no distended Integumentary: no rash, warm and dry Neurologic: no focal deficit Psychiatric: cooperative - Vital Signs Vital signs: Vital Signs - 12hr 02/04/18 02/04/18 02/04/18 04:12 08:11 11:54 Temperature 97.7 F 98.4 F 97.7 F Pulse Rate 81 75 80 Respiratory 20 18 20 Rate Blood Pressure 145/79 Blood Pressure 164/85 163/81 [Right] O2 Sat by Pulse 91 99 98 Oximetry - Lab 02/04/18 04:48 02/04/18 04:48 Most recent lab results Calcium 7.7 mg/dL (8.4-10.2) L 02/04/18 04:48
--- NOTE | 2018-02-04 16:36 | Progress Note ---
Assessment and Plan Assessment and plan: 62-year-old -[place] female with past medical history significant for end stage renal disease on peritoneal dialysis, hypertension presented to the emergency department with complaints of cough, shortness of breath, and elevated blood pressure. Hypertensive urgency - Patient's blood pressure was uncontrolled now controlled after I added amlodipine and hydralazine - We will monitor closely and adjust as needed End-stage renal disease on PD - Nephrology consulted and recommended to increase frequency of dialysis from 3 times a day to 6 times a day Pneumonia - Evidenced by elevated white blood cell count and right middle and lower lobe infiltrates, CT showed suspicious for pneumonia - ID consult requested - Repeat CBC Chest pain - Cardiology consulted and did a stress test which showed fixed anterior defect , and suggested it may be artifact due to breast shadowing - EF 40-45% - Recommended no further workup DVT prophylaxis - On heparin Disposition - Possibly discharge tomorrow History Interval history: Patient was seen and evaluated at the bedside, patient's chest pain and shortness of breath is getting better. Patient said shortness of breath and cough subsided. Hospitalist Physical - Physical exam Narrative exam: Not in cardiopulmonary distress. The patient is obese Vital signs as documented. Head exam is unremarkable. No scleral icterus . Neck is without jugular venous distension, thyromegaly, or carotid bruits. Lungs are clear to auscultation. Cardiac exam reveals regular rate and Rhythm. First and second heart sounds normal. No murmurs, rubs or gallops. Abdominal exam reveals normal bowel sounds, no masses, no organomegaly and no aortic enlargement. Extremities are nonedematous and both femoral and pedal pulses are normal. RECEPTIONIST TELEPHONE OPERATOR: Alert and oriented 3. No focal weakness. - Constitutional Vitals: Temp Pulse Resp BP Pulse Ox 97.7 F 80 20 163/81 98 02/04/18 11:54 02/04/18 11:54 02/04/18 11:54 02/04/18 11:54 02/04/18 11:54 General appearance: Present: no acute distress Results - Labs CBC & Chem 7: 02/04/18 04:48 02/04/18 04:48 Labs: Laboratory Last Values WBC 10.0 K/mm3 (4.5-11.0) 02/04/18 04:48 RBC 2.96 M/mm3 (3.65-5.03) L 02/04/18 04:48 Hgb 9.1 gm/dl (10.1-14.3) L 02/04/18 04:48 Hct 26.6 % (30.3-42.9) L 02/04/18 04:48 MCV 90 fl (79-97) 02/04/18 04:48 MCH 31 pg (28-32) 02/04/18 04:48 MCHC 34 % (30-34) 02/04/18 04:48 RDW 13.7 % (13.2-15.2) 02/04/18 04:48 Plt Count 374 K/mm3 (140-440) 02/04/18 04:48 Lymph % (Auto) 7.9 % (13.4-35.0) L 02/04/18 04:48 [place] % (Auto) 7.6 % (0.0-7.3) H 02/04/18 04:48 Eos % (Auto) 1.6 % (0.0-4.3) 02/04/18 04:48 Baso % (Auto) 1.0 % (0.0-1.8) 02/04/18 04:48 Lymph # 0.8 K/mm3 (1.2-5.4) L 02/04/18 04:48 [place] # 0.8 K/mm3 (0.0-0.8) 02/04/18 04:48 Eos # 0.2 K/mm3 (0.0-0.4) 02/04/18 04:48 Baso # 0.1 K/mm3 (0.0-0.1) 02/04/18 04:48 Seg Neutrophils % 81.9 % (40.0-70.0) H 02/04/18 04:48 Seg Neutrophils # 8.1 K/mm3 (1.8-7.7) H 02/04/18 04:48 Sodium 137 mmol/L (137-145) 02/04/18 04:48 Potassium 3.3 mmol/L (3.6-5.0) L 02/04/18 04:48 Chloride 94.2 mmol/L (98-107) L 02/04/18 04:48 Carbon Dioxide 23 mmol/L (22-30) 02/04/18 04:48 Anion Gap 23 mmol/L 02/04/18 04:48 BUN 57 mg/dL (7-17) H 02/04/18 04:48 Creatinine 12.1 mg/dL (0.7-1.2) H 02/04/18 04:48 Estimated GFR 4 ml/min 02/04/18 04:48 BUN/Creatinine Ratio 5 % 02/04/18 04:48 Glucose 186 mg/dL (65-100) H 02/04/18 04:48 POC Glucose 174 (70-105) H 02/04/18 12:10 Hemoglobin A1c 6.8 % (4-6) H 02/01/18 23:00 Lactic Acid 1.20 mmol/L (0.7-2.0) 02/01/18 17:04 Calcium 7.7 mg/dL (8.4-10.2) L 02/04/18 04:48 Troponin T 0.043 ng/mL (0.00-0.029) H 02/02/18 12:41 NT-Pro-B Natriuret Pep 04612 pg/mL (0-900) H 02/01/18 17:04 Triglycerides 353 mg/dL (2-149) H 02/01/18 13:34 Cholesterol 266 mg/dL (50-199) H 02/01/18 13:34 LDL Cholesterol Direct 164 mg/dL (50-130) H 02/01/18 13:34 HDL Cholesterol 31 mg/dL (40-59) L 02/01/18 13:34 Cholesterol/HDL Ratio 8.58 % 02/01/18 13:34
[2018-02-04] MEDS: LEVAQUIN 500MG/100ML 500 MG/100 ML BAG IV SCH (18:47)
[2018-02-05] MEDS: DIANEAL LOW CALCIUM W/2.5% DEXTROSE IP SCH ×2 (03:00→06:31)
[2018-02-05] MEDS: HumaLOG SUB-Q SCH ×2 (03:45→07:51)
[2018-02-05] MEDS: LOPRESSOR PO SCH ×2 (03:46→09:18)
[2018-02-05] MEDS: HEPARIN SUB-Q SCH ×2 (03:46→09:18)
[2018-02-05] MEDS: SODIUM CHLORIDE FLUSH SYRINGE 10 ML IV SCH (03:54)
[2018-02-05 06:12] LABS: Calcium 7.9 mg/dL (8.4-10.2)
[2018-02-05] MEDS: SYNTHROID PO SCH ×2 (06:22)
[2018-02-05] MEDS ORDERED: DIANEAL LOW CALCIUM W/2.5% DEXTROSE IP SCH (08:00)
[2018-02-05] MEDS ORDERED: K-DUR PO ONE (08:34)
[2018-02-05] MEDS: ZESTRIL PO SCH (09:17)
[2018-02-05] MEDS: APRESOLINE PO SCH (09:17)
[2018-02-05] MEDS: ASPIRIN PO SCH (09:17)
[2018-02-05] MEDS: NORVASC PO SCH (09:18)
--- NOTE | 2018-02-05 09:57 | Discharge Summary ---
Providers - Providers Date of Admission: 02/01/18 17:32 Attending physician: SHIRA SUERO MD 02/01/18 16:27 Consult to Physician [CONS] Urgent Comment: Consulting Provider: BORA VILLEGAS Physician Instructions: Reason For Exam: esrd 02/01/18 23:05 Consult to Physician [CONS] Routine Comment: duplicate consult Consulting Provider: BORA VILLEGAS Physician Instructions: Reason For Exam: ESRD 02/01/18 23:06 Consult to Physician [CONS] Routine Comment: Consulting Provider: FAIZAN HEATON Physician Instructions: Reason For Exam: CHF 02/04/18 08:09 Consult to Physician [CONS] Routine Comment: Consulting Provider: LE ALVAREZ Physician Instructions: Reason For Exam: right middle and LL pneumonia Primary care physician: SPORTS ANALYST Hospitalization Reason for admission: fluid overload, ESRD on PD, pneumonia Condition: Good Disposition: DC-01 TO HOME OR SELFCARE Time spent for discharge: 32 minutes - Discharge Diagnoses (1) Acute exacerbation of CHF (congestive heart failure) Status: Acute Qualifiers: Heart failure type: combined systolic and diastolic Qualified Code(s): I50.43 - Acute on chronic combined systolic (congestive) and diastolic ( congestive) heart failure (2) Chest pain Status: Acute (3) Fluid overload Status: Acute (4) Pneumonia Status: Acute (5) ESRD (end stage renal disease) Status: Chronic (6) Hypertension Status: Chronic Qualifiers: Hypertension type: essential hypertension Qualified Code(s): I10 - Essential (primary) hypertension (7) Hypothyroidism (acquired) Status: Chronic Core Measure Documentation - Palliative Care Palliative Care/ Comfort Measures: Not Applicable - Core Measures Any of the following diagnoses?: acute [place] - Heart Failure Discharge Requirements JEFF/ARB for LVSD if EF <40%: Yes Beta christophe at discharge: Yes Exam - Physical Exam Narrative exam: Not in cardiopulmonary distress. The patient is obese Vital signs as documented. Head exam is unremarkable. No scleral icterus . Neck is without jugular venous distension, thyromegaly, or carotid bruits. Lungs are clear to auscultation. Cardiac exam reveals regular rate and Rhythm. First and second heart sounds normal. No murmurs, rubs or gallops. Abdominal exam reveals normal bowel sounds, no masses, no organomegaly and no aortic enlargement. Extremities are nonedematous and both femoral and pedal pulses are normal. LEAD MATERIAL HANDLER: Alert and oriented 3. No focal weakness. - Constitutional Vitals: Temp Pulse Resp BP Pulse Ox 98.4 F 77 17 162/87 94 02/05/18 07:34 02/05/18 07:34 02/05/18 07:34 02/05/18 07:34 02/05/18 07:34 Plan Activity: no restrictions Weight Bearing Status: Full Weight Bearing Diet: low salt, renal Additional Instructions: Follow up at [facility] in 1-2 weeks Follow up with: PRIMARY CARE, [Primary Care Provider] - 3-5 Days Prescriptions: amLODIPine [Norvasc] 10 mg PO QDAY #30 tablet Doxycycline [Vibramycin CAP] 100 mg PO Q12HR #14 capsule hydrALAZINE [Apresoline TAB] 100 mg PO TID #90 tab Polyethylene Glycol 3350 [Miralax 3350] 17 gm PO BID #30 packet
[2018-02-05] MEDS ORDERED: MIRALAX 3350 PO PRN (10:00)
--- NOTE | 2018-02-05 10:59 | Progress Note ---
Assessment and Plan Impression: * ESRD on CAPD * Uremia secondary to inadequate dialysis * Accelerated hypertension - improved * Pulmonary edema * Anemia secondary to ESRD Plan: * Continue CAPD - 6 exchanges daily * Abx per primary team * Continue antiHTN medications * Dose medications for renal function * Avoid potential nephrotoxins * will need more aggressive outpatient regimen * dc home with follow up outpatient nephrology Subjective Date of service: 02/05/18 Principal diagnosis: esrd Interval history: resting in bed today Objective - Exam Narrative Exam: General appearance: well-developed, well-nourished EENT: ATNC Cardiology: regular, S1S2 Gastrointestinal: normal, no tenderness, no distended Integumentary: no rash, warm and dry Neurologic: no focal deficit Psychiatric: cooperative - Vital Signs Vital signs: Vital Signs - 12hr 02/05/18 02/05/18 02/05/18 00:01 00:27 04:45 Temperature 98.6 F Pulse Rate 82 81 69 Respiratory 20 Rate Blood Pressure 165/83 159/68 Blood Pressure 165/83 [Right] O2 Sat by Pulse 97 97 99 Oximetry 02/05/18 02/05/18 05:16 07:34 Temperature 97.6 F 98.4 F Pulse Rate 84 77 Respiratory 20 17 Rate Blood Pressure 162/87 Blood Pressure 110/88 [Right] O2 Sat by Pulse 99 94 Oximetry - Lab 02/04/18 04:48 02/05/18 03:44 Most recent lab results Calcium 7.9 mg/dL (8.4-10.2) L 02/05/18 03:44
--- NOTE | 2018-02-05 12:24 | Progress Note ---
Assessment and Plan 1. Essential hypertension 2. End-stage renal disease on peritoneal dialysis 3. Type 2 diabetes mellitus 4. Mild nonischemic cardiomyopathy Plan. Cardiac-yañez stable continue present medication follow-up in the office in 2 weeks Subjective Date of service: 02/05/18 Principal diagnosis: esrd Interval history: No cardiac symptoms Objective Vital Signs Temp Pulse Resp BP BP Pulse Ox 02/05/18 07:34 98.4 F 77 17 162/87 94 02/05/18 05:16 97.6 F 84 20 110/88 99 02/05/18 04:45 69 159/68 99 02/05/18 00:27 98.6 F 81 20 165/83 97 02/05/18 00:01 82 165/83 97 02/04/18 20:15 98.9 F 86 18 174/89 96 02/04/18 20:01 174/89 02/04/18 20:00 181/94 - Physical Examination General: Appears Well, No Apparent Distress HEENT: Positive: PERRL Neck: Positive: neck supple. Negative: JVD/HJR Cardiac: Positive: Regular Rate, PMI, Laterally Displaced Lungs: Positive: clear to auscultation, No Wheeze, Rales, Rhonchi Neuro: Positive: Grossly Intact Abdomen: Positive: Unremarkable, Soft, Active Bowel Sounds Extremities: Present: edema - Labs and Meds Comprehensive Metabolic Panel 02/05/18 Range/Units 03:44 Sodium 136 L (137-145) mmol/L Potassium 3.2 L (3.6-5.0) mmol/L Chloride 92.7 L (98-107) mmol/L Carbon Dioxide 24 (22-30) mmol/L BUN 50 H (7-17) mg/dL Creatinine 11.7 H (0.7-1.2) mg/dL Glucose 180 H (65-100) mg/dL Calcium 7.9 L (8.4-10.2) mg/dL - Imaging and Cardiology EKG: report reviewed (sinus tachycardia heart rate of 117)
[2018-02-05 12:35] VITALS: BP 171/86
== END 2018-02-05 14:17 | disposition home or self-care (01) | DRG 871 ==
LOC: ED 13:16 → 4A 17:32
PROVIDERS: ADMIT Internal Medicine; ATTEND Internal Medicine
PROC: 3E1M39Z Irrigation of Peritoneal Cavity using Dialysate, Percutaneous Approach (ICD-10-PCS; principal; 2018-02-03)
PROC: 3E1M39Z Irrigation of Peritoneal Cavity using Dialysate, Percutaneous Approach (ICD-10-PCS; 2018-02-04)
PROC: 3E1M39Z Irrigation of Peritoneal Cavity using Dialysate, Percutaneous Approach (ICD-10-PCS; 2018-02-05)
DX: A41.9 Sepsis, unspecified organism (principal); N18.6 End stage renal disease; J18.9 Pneumonia, unspecified organism; I50.43 Acute on chronic combined systolic (congestive) and diastolic (congestive) heart failure; I13.2 Hypertensive heart and chronic kidney disease with heart failure and with stage 5 chronic kidney disease, or end stage renal disease; I12.0 Hypertensive chronic kidney disease with stage 5 chronic kidney disease or end stage renal disease; I42.9 Cardiomyopathy, unspecified; D63.1 Anemia in chronic kidney disease; E87.70 Fluid overload, unspecified; I16.0 Hypertensive urgency; E89.0 Postprocedural hypothyroidism; Y83.8 Other surgical procedures as the cause of abnormal reaction of the patient, or of later complication, without mention of misadventure at the time of the procedure; Z90.49 Acquired absence of other specified parts of digestive tract; Z79.82 Long term (current) use of aspirin; Z79.899 Other long term (current) drug therapy; Z88.6 Allergy status to analgesic agent; Z88.3 Allergy status to other anti-infective agents; Z91.041 Radiographic dye allergy status; Z88.5 Allergy status to narcotic agent; Z91.010 Allergy to peanuts; Z88.0 Allergy status to penicillin; Z91.013 Allergy to seafood; Z88.2 Allergy status to sulfonamides; Z91.018 Allergy to other foods; Z82.49 Family history of ischemic heart disease and other diseases of the circulatory system; Y92.89 Other specified places as the place of occurrence of the external cause; Z99.2 Dependence on renal dialysis
CPT/HCPCS: 36415; 71046; 71250; 78452; 80048; 80061; 82140; 82962; 83036; 83880; 84484; 85025; 87040; 87449; 93005; 93010; 93017; 93306; A9270-GY; A9502; J0360; J0696; J1200; J1644; J1815; J1940; J1956; J2405; J2765; J2785

== ENCOUNTER 2019-05-24 16:36 | Emergency (ER) | payer OTHER, MEDICARE ==
--- NOTE | 2019-05-24 17:18 | Event Note ---
ED Screening Note Date of service: 05/24/19 Time: 17:16 ED Screening Note: 64 y o female presents with n/v/d x 1 week, worsening with no relief cc of abd pain worsening with laying down recent travel outside country, return 05/06 This initial assessment/diagnostic orders/clinical plan/treatment(s) is/are subject to change based on patients health status, clinical progression and re- assessment by fellow clinical providers in the ED. Further treatment and workup at subsequent clinical providers discretion. Patient/guardian urged not to elope from the ED as their condition may be serious if not clinically assessed and managed. Initial orders include: labs
[2019-05-24 18:09] LABS: Basophils % (Auto) 0.3 % (0.0-1.8); Eosinophils % (Auto) 0.1 % (0.0-4.3); Hemoglobin 13.1 gm/dl (10.1-14.3); Lymphocytes # (Auto) 0.6 K/mm3 (1.2-5.4); Lymphocytes % (Auto) 8.6 % (13.4-35.0); Mean Corpuscular HGB Conc 33 % (30-34); Mean Corpuscular Volume 84 fl (79-97); Monocytes # (Auto) 0.6 K/mm3 (0.0-0.8); Monocytes % (Auto) 7.9 % (0.0-7.3); Platelet Count 252 K/mm3 (140-440); Red Blood Count 4.75 M/mm3 (3.65-5.03); Red Cell Distribution Width 15.7 % (13.2-15.2)
[2019-05-24] MEDS ORDERED: ONDANSETRON 4 MG/2 ML INJ IV ONE (18:10)
[2019-05-24] MEDS ORDERED: MORPHINE 4 MG/1 ML INJ IV ONE (18:10)
--- NOTE | 2019-05-24 18:18 | Emergency Department Report ---
ED N/V/D HPI - General Chief complaint: Nausea/Vomiting/Diarrhea Stated complaint: VOMITING Time Seen by Provider: 05/24/19 17:57 Source: patient, family Mode of arrival: Wheelchair Limitations: No Limitations - History of Present Illness Initial comments: Patient is a 64-year-old female presents emergency room with complaints of nausea, vomiting, diarrhea that began 05/17/19. She states that she is unable tolerate any by mouth intake. She states that the diarrhea has improved but she continues to have vomiting. She states that she has also had bilateral leg swelling for a few days. Patient was just released from the hospital yesterday for the same symptoms but states that she is not improving. She states that she receive dialysis in the hospital yesterday and did home dialysis today. Patient states that she recently traveled out of the country on a cruise on 05/06/19. She denies any chest pain, shortness of breath, hematochezia, hematemesis, melena, fever, pus in the stool. She has a past medical history of end-stage renal disease, DM, HTN, CHF, recent diagnosis of breast cancer. She states that she has an appointment next week at [facility] with Dr. Javier, breast surgeon. Past surgical history of thyroidectomy due to Graves' disease. - Related Data Home Medications Medication Instructions Recorded Confirmed Last Taken Aspirin 325 mg PO ONCE 02/15/15 05/22/19 Unknown Furosemide [Lasix TAB] 80 mg PO DAILY 02/15/15 05/22/19 Unknown Levothyroxine [Synthroid] 300 mcg PO QAM 02/15/15 02/02/18 Unknown Simvastatin [Zocor TAB] 40 mg PO DAILY 02/02/18 02/03/18 Unknown Insulin Glargine,Hum.rec.anlog 45 unit SQ DAILY 02/03/18 05/22/19 Unknown [Tejas Sharif] Previous Rx's Medication Instructions Recorded Last Taken Type Metoprolol [Lopressor TAB] 25 mg PO BID tablet 02/05/18 Unknown Rx HYDROcodone/ACETAMINOPHEN 1 each PO Q6HR PRN #7 tablet 05/24/19 Unknown Rx [Hydrocodone-Acetamin 5-300 mg] Ondansetron [Zofran Odt] 4 mg PO Q8HR PRN #14 tab.rapdis 05/24/19 Unknown Rx Promethazine [Phenergan] 25 mg NM Q6HR PRN #10 supp.rect 05/24/19 Unknown Rx Allergies Allergy/AdvReac Type Severity Reaction Status Date / Time blueberry Allergy Rash Verified 05/21/19 16:57 chocolate flavor Allergy Rash Verified 05/21/19 16:57 Fish Containing Products Allergy Anaphylaxis Verified 05/21/19 16:57 peanut Allergy Anaphylaxis Verified 05/21/19 16:57 shellfish derived Allergy Anaphylaxis Verified 05/21/19 16:57 strawberry Allergy Rash Verified 05/21/19 16:57 acetaminophen AdvReac Unknown Verified 05/21/19 16:57 codeine AdvReac Unknown Verified 05/21/19 16:57 iodine AdvReac Unknown Verified 05/21/19 16:57 lactase AdvReac Diarrhea Verified 05/21/19 16:57 levofloxacin [From Levaquin] AdvReac Nausea Verified 05/21/19 16:57 Penicillins AdvReac Unknown Verified 05/21/19 16:57 Sulfa (Sulfonamide AdvReac Unknown Verified 05/21/19 16:57 Antibiotics) ED Review of Systems ROS: Stated complaint: VOMITING Other details as noted in HPI Comment: All other systems reviewed and negative ED Past Medical Hx - Past Medical History Previous Medical History?: Yes Hx Hypertension: Yes Hx Congestive Heart Failure: No Hx Diabetes: Yes Hx Renal Disease: Yes (PERITONEAL DAILY) Hx Asthma: No Hx COPD: No Hx HIV: No Additional medical history: hypothyroidsim - Surgical History Past Surgical History?: Yes Hx Cholecystectomy: Yes Hx Appendectomy: Yes Additional Surgical History: THYROIDECTOMY. DIALYSIS CATHETER - Social History Smoking Status: Never Smoker Substance Use Type: None - Medications Home Medications: Home Medications Medication Instructions Recorded Confirmed Last Taken Type Aspirin 325 mg PO ONCE 02/15/15 05/22/19 Unknown History Furosemide [Lasix TAB] 80 mg PO DAILY 02/15/15 05/22/19 Unknown History Levothyroxine [Synthroid] 300 mcg PO QAM 02/15/15 02/02/18 Unknown History Simvastatin [Zocor TAB] 40 mg PO DAILY 02/02/18 02/03/18 Unknown History Insulin Glargine,Hum.rec.anlog 45 unit SQ DAILY 02/03/18 05/22/19 Unknown History [Toujeo Max Solostar] Metoprolol [Lopressor TAB] 25 mg PO BID tablet 02/05/18 Unknown Rx HYDROcodone/ACETAMINOPHEN 1 each PO Q6HR PRN #7 tablet 05/24/19 Unknown Rx [Hydrocodone-Acetamin 5-300 mg] Ondansetron [Zofran Odt] 4 mg PO Q8HR PRN #14 tab.rapdis 05/24/19 Unknown Rx Promethazine [Phenergan] 25 mg NM Q6HR PRN #10 supp.rect 05/24/19 Unknown Rx ED Physical Exam - General Limitations: No Limitations General appearance: alert, in no apparent distress - Head Head exam: Present: atraumatic, normocephalic - Eye Eye exam: Present: normal appearance - ENT ENT exam: Present: mucous membranes moist - Respiratory Respiratory exam: Present: rales (bilateral bases). Absent: respiratory distress, wheezes, rhonchi, stridor, chest wall tenderness, accessory muscle use, decreased breath sounds, prolonged expiratory - Cardiovascular Cardiovascular Exam: Present: regular rate, normal rhythm, normal heart sounds. Absent: systolic murmur, diastolic murmur, rubs, gallop - GI/Abdominal GI/Abdominal exam: Present: soft, tenderness (mild generalized abd TTP), normal bowel sounds, other (peritoneal dialysis catheter in place, clean, dry, intact, without signs of infection, no peritoneal signs). Absent: distended, guarding, rebound, rigid - Extremities Exam Extremities exam: Present: pedal edema (bilaterally) - Neurological Exam Neurological exam: Present: alert, oriented X3 - Psychiatric Psychiatric exam: Present: normal affect, normal mood - Skin Skin exam: Present: warm, dry, intact ED Course Vital Signs 05/24/19 16:49 Temperature 97.7 F Pulse Rate 75 Respiratory 16 Rate Blood Pressure 156/86 O2 Sat by Pulse 98 Oximetry ED Medical Decision Making - Lab Data Result diagrams: 05/24/19 17:53 05/24/19 17:53 Lab Results 05/24/19 05/24/19 05/24/19 Range/Units 17:53 17:53 19:27 WBC 7.1 (4.5-11.0) K/mm3 RBC 4.75 (3.65-5.03) M/mm3 Hgb 13.1 (10.1-14.3) gm/dl Hct 40.0 (30.3-42.9) % MCV 84 (79-97) fl MCH 28 (28-32) pg MCHC 33 (30-34) % RDW 15.7 H (13.2-15.2) % Plt Count 252 (140-440) K/mm3 Lymph % (Auto) 8.6 L (13.4-35.0) % Turner % (Auto) 7.9 H (0.0-7.3) % Eos % (Auto) 0.1 (0.0-4.3) % Baso % (Auto) 0.3 (0.0-1.8) % Lymph # 0.6 L (1.2-5.4) K/mm3 Turner # 0.6 (0.0-0.8) K/mm3 Eos # 0.0 (0.0-0.4) K/mm3 Baso # 0.0 (0.0-0.1) K/mm3 Seg Neutrophils % 83.1 H (40.0-70.0) % Seg Neutrophils # 5.9 (1.8-7.7) K/mm3 VBG pH 7.335 (7.320-7.420) Sodium 128 L (137-145) mmol/L Potassium 3.6 (3.6-5.0) mmol/L Chloride 86.1 L (98-107) mmol/L Carbon Dioxide 18 L (22-30) mmol/L Anion Gap 28 mmol/L BUN 88 H (7-17) mg/dL Creatinine 17.2 H (0.7-1.2) mg/dL Estimated GFR 3 ml/min BUN/Creatinine Ratio 5 % Glucose 105 H (65-100) mg/dL Calcium 6.0 L (8.4-10.2) mg/dL Total Bilirubin 0.20 (0.1-1.2) mg/dL AST 45 H (5-40) units/L ALT 22 (7-56) units/L Alkaline Phosphatase 221 H (35-129) units/L Total Protein 6.5 (6.3-8.2) g/dL Albumin 2.7 L (3.9-5) g/dL Albumin/Globulin Ratio 0.7 % Amylase 86 (27-131) units/L Lipase 76 H (13-60) units/L - Radiology Data Radiology results: report reviewed CT ABDOMEN AND PELVIS WITHOUT IV CONTRAST INDICATION: Nausea, Vomiting and Diarrhea. COMPARISON: T7 917. TECHNIQUE: All CT scans at this facility use dose modulation, automated exposure control, iterative reconstruction or weight based dosing, when appropriate, to reduce radiation dose to as low as reasonably achievable. FINDINGS: Lung Bases: New since the prior, there is a right pleural effusion which is incompletely evaluated on this exam. Skeletal System: No acute abnormality. ABDOMEN: Liver: No significant abnormality. Gallbladder: Removed. Bile Ducts: No significant abnormality. Pancreas: No significant abnormality. Spleen: No significant abnormality. Adrenals: Hypodense bilateral adrenal lesions are stable, these are most likely adenomas. Right Kidney: There are a few punctate nonobstructing calyceal stones. No hydronephrosis. Left Kidney: No significant abnormality. Upper GI tract: Small bowel loops are mildly edematous but not dilated. Lymph Nodes: No significant adenopathy. Aorta: No significant abnormality. Additional Findings: There are several punctate foci of free air within the nondependent abdomen, predominantly superiorly. There is trace perihepatic ascites. PELVIS: Colon: No acute abnormality. Diverticulosis is noted. Urinary Bladder and Distal Ureters: There is mild bladder wall thickening. Appendix: Not visualized, not seen on the prior. Lymph Nodes: No significant adenopathy. Additional Findings: Trace free fluid is seen. There is a peritoneal dialysis catheter coiled in the midline pelvis. IMPRESSION: 1. Trace foci of free air within the nondependent abdomen are most likely related to the peritoneal dialysis catheter. I do not see evidence for colonic inflammation or gastroduodenal perforation. Correlate clinically. There is also trace ascites. 2. Proximal loops of small bowel are mildly edematous which could be seen in the setting of enteritis. There is no bowel obstruction. 3. New right pleural effusion incompletely evaluated on this exam. 4. Incidental findings, as above. Signer Name: Jared Culver MD Signed: 05/24/2019 7:29 PM Workstation Name: [id number] Transcribed By: NRAA Dictated By: Jared Culver MD Electronically Authenticated By: Jared Culver MD Signed Date/Time: 05/24/191928 DD/ 22 TD/TT: CHEST 1 VIEW 1834 INDICATION / CLINICAL INFORMATION: ESRD, crackles in bases of lungs. COMPARISON: 05/21/2019 FINDINGS: SUPPORT DEVICES: None HEART / MEDIASTINUM: Mild cardiomegaly LUNGS / PLEURA: Slightly congested appearance is seen. Small right pleural effu ramon is noted. No definite areas of consolidation are seen. Mild basilar atelectatic changes are seen, more on the right, improved on the right from prior study. No pneumothorax. ADDITIONAL FINDINGS: No significant additional findings. IMPRESSION: Mild improvement Signer Name: Slava Milian MD Signed: 05/24/2019 7:11 PM Workstation Name: [id number] Transcribed By: NEFTALY Dictated By: Slava Milian MD Electronically Authenticated By: Slava Milian MD Signed Date/Time: 05/24/191910 - Medical Decision Making Patient is a 64-year-old female presents emergency room with complaints of nausea, vomiting, diarrhea that began 05/17/19. She states that she is unable tolerate any by mouth intake. She states that the diarrhea has improved but she continues to have vomiting. She states that she has also had bilateral leg swelling for a few days. Patient was just released from the hospital yesterday for the same symptoms but states that she is not improving. She states that she receive dialysis in the hospital yesterday and did home dialysis today. Patient states that she recently traveled out of the country on a cruise on 04/23 09/09. She denies any chest pain, shortness of breath, hematochezia, hematemesis, melena, fever, pus in the stool. She has a past medical history of end-stage renal disease, DM, HTN, CHF, recent diagnosis of breast cancer. She states that she has an appointment next week at [facility] with Dr. Javier, breast surgeon. Past surgical history of thyroidectomy due to Graves' disease. Patient states that she was not discharged home from the hospital with anything for her nausea and vomiting. Vitals are stable. Labs are stable from previous with improvement of her kidney function. CT abd pelvis: 1. Trace foci of free air within the nondependent abdomen are most likely related to the peritoneal dialysis catheter. I do not see evidence for colonic inflammation or gastroduodenal perforation. Correlate clinically. There is also trace ascites. 2. Proximal loops of small bowel are mildly edematous which could be seen in the setting of enteritis. There is no bowel obstruction. 3. New right pleural effusion incompletely evaluated on this exam. 4. Incidental findings, as above. No signs of peritonitis or infection of the peritoneal dialysis catheter on physical examination. CXR shows Mild improvement. No shortness of breath or chest pain patient is not hypoxic. Patient given pain medications and nausea medications and her symptoms significantly improved. Patient was by mouth challenged while in the ED and had no difficulty and no further episodes of nausea or vomiting. Patient given prescription for zofran, phenergan suppositories and pain medication. advised pt to Please take medication as prescribed. If the Zofran is not working then please use the Phenergan suppositories. Increase your fluid intake over the next several days. Eat a bland diet. 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 Return to the emergency room immediately for any new or worsening symptoms including but not limited to worsening abdominal pain, fever, blood in the stool or vomit, pus in the stool, unable to tolerate by mouth intake, etc. - Differential Diagnosis gastroenteritis, viral syndrome, peritonitis, obstruction, colitis Critical care attestation.: If time is entered above; I have spent that time in minutes in the direct care of this critically ill patient, excluding procedure time. ED Disposition Clinical Impression: Nausea vomiting and diarrhea, ESRD (end stage renal disease), Pleural effusion, Enteritis Disposition: DC-01 TO HOME OR SELFCARE Is pt being admited?: No Does the pt Need Aspirin: No Condition: Stable Instructions: Gastroenteritis (ED), Acute Nausea and Vomiting (ED) Additional Instructions: Please take medication as prescribed. If the Zofran is not working then please use the Phenergan suppositories. Increase your fluid intake over the next several days. Eat a bland diet. 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 Return to the emergency room immediately for any new or worsening symptoms including but not limited to w orsening abdominal pain, fever, blood in the stool or vomit, pus in the stool, unable to tolerate by mouth intake, etc. Prescriptions: HYDROcodone/ACETAMINOPHEN [Hydrocodone-Acetamin 5-300 mg] 1 each PO Q6HR PRN #7 tablet PRN Reason: Pain , Severe (7-10) Promethazine [Phenergan] 25 mg NM Q6HR PRN #10 supp.rect PRN Reason: Nausea And Vomiting Ondansetron [Zofran Odt] 4 mg PO Q8HR PRN #14 tab.rapdis PRN Reason: Nausea And Vomiting Referrals: ARCENIO CENTENO MD [Primary Care Provider] - 2-3 Days your, tool engine lathe set up operator [Other] - 2-3 Days Time of Disposition: 20:04 Print Language: IRISH
[2019-05-24 18:32] LABS: Albumin 2.7 g/dL (3.9-5)
--- NOTE | 2019-05-24 19:16 | XRay Report ---
CHEST 1 VIEW 1834 INDICATION / CLINICAL INFORMATION: ESRD, crackles in bases of lungs. COMPARISON: 05/21/2019 FINDINGS: SUPPORT DEVICES: None HEART / MEDIASTINUM: Mild cardiomegaly LUNGS / PLEURA: Slightly congested appearance is seen. Small right pleural effusion is noted. No defi nite areas of consolidation are seen. Mild basilar atelectatic changes are seen, more on the right, i mproved on the right from prior study. No pneumothorax. ADDITIONAL FINDINGS: No significant additional findings. IMPRESSION: Mild improvement Signer Name: Slava Milian MD Signed: 05/24/2019 7:11 PM Workstation Name: [id number]
--- NOTE | 2019-05-24 19:34 | Cat Scan Report ---
CT ABDOMEN AND PELVIS WITHOUT IV CONTRAST INDICATION: Nausea, Vomiting and Diarrhea. COMPARISON: T7 917. TECHNIQUE: All CT scans at this facility use dose modulation, automated exposure control, iterative reconstructi on or weight based dosing, when appropriate, to reduce radiation dose to as low as reasonably achieva ble. FINDINGS: Lung Bases: New since the prior, there is a right pleural effusion which is incompletely evaluated on this exam. Skeletal System: No acute abnormality. ABDOMEN: Liver: No significant abnormality. Gallbladder: Removed. Bile Ducts: No significant abnormality. Pancreas: No significant abnormality. Spleen: No significant abnormality. Adrenals: Hypodense bilateral adrenal lesions are stable, these are most likely adenomas. Right Kidney: There are a few punctate nonobstructing calyceal stones. No hydronephrosis. Left Kidney: No significant abnormality. Upper GI tract: Small bowel loops are mildly edematous but not dilated. Lymph Nodes: No significant adenopathy. Aorta: No significant abnormality. Additional Findings: There are several punctate foci of free air within the nondependent abdomen, pre dominantly superiorly. There is trace perihepatic ascites. PELVIS: Colon: No acute abnormality. Diverticulosis is noted. Urinary Bladder and Distal Ureters: There is mild bladder wall thickening. Appendix: Not visualized, not seen on the prior. Lymph Nodes: No significant adenopathy. Additional Findings: Trace free fluid is seen. There is a peritoneal dialysis catheter coiled in the midline pelvis. IMPRESSION: 1. Trace foci of free air within the nondependent abdomen are most likely related to the peritoneal dialysis catheter. I do not see evidence for colonic inflammation or gastroduodenal perforation. Teresa elate clinically. There is also trace ascites. 2. Proximal loops of small bowel are mildly edematous which could be seen in the setting of enteriti s. There is no bowel obstruction. 3. New right pleural effusion incompletely evaluated on this exam. 4. Incidental findings, as above. Signer Name: Jared Culver MD Signed: 05/24/2019 7:29 PM Workstation Name: [id number]
[2019-05-24 21:53] VITALS: BP 146/84
== END 2019-05-24 21:00 | disposition home or self-care (01) ==
LOC: ED 16:36
DX: K52.9 Noninfective gastroenteritis and colitis, unspecified (principal); J90 Pleural effusion, not elsewhere classified; E11.22 Type 2 diabetes mellitus with diabetic chronic kidney disease; I12.0 Hypertensive chronic kidney disease with stage 5 chronic kidney disease or end stage renal disease; N18.6 End stage renal disease; E03.9 Hypothyroidism, unspecified; Z99.2 Dependence on renal dialysis; Z79.4 Long term (current) use of insulin; Z29.9 Encounter for prophylactic measures, unspecified; Z90.89 Acquired absence of other organs; Z90.49 Acquired absence of other specified parts of digestive tract; Z91.018 Allergy to other foods; Z91.013 Allergy to seafood; Z91.010 Allergy to peanuts; Z88.6 Allergy status to analgesic agent; Z88.5 Allergy status to narcotic agent; Z88.1 Allergy status to other antibiotic agents; Z88.0 Allergy status to penicillin; Z88.2 Allergy status to sulfonamides; Z91.040 Latex allergy status; Z91.041 Radiographic dye allergy status
CPT/HCPCS: 36415; 71045; 74176; 80053; 82150; 82805; 83690; 85025; 96374; 96375; 99284; J2270; J2405